=== PATIENT | female | born 1955 | race Hispanic/Latino ===

== ENCOUNTER 2019-01-22 02:53 | Emergency (ER) | payer OTHER ==
[2019-01-22] MEDS ORDERED: Morphine 10 MG/ML VIAL ONE (03:41)
[2019-01-22] MEDS ORDERED: Lidocaine 1% (PF) 30 ML VIAL ONE (03:41)
[2019-01-22] MEDS ORDERED: Bupivacaine 0.5% 10 ML VIAL ONE (03:41)
[2019-01-22] MEDS ORDERED: Lorazepam 1 MG TAB ONE (04:18)
--- NOTE | 2019-01-22 07:39 | RAD ---
RIGHT FOREARM 2 VIEWS: Date: 01/12/19 INDICATION: Post reduction films. COMPARISON: Prior study dated 01/22/19. FINDINGS/IMPRESSION: There is improved alignment in the dorsally angulated metaphyseal fracture of the distal radius. Ther e is a mildly displaced ulnar styloid process fracture. Radiocapitellar alignment appears within norm al limits. Overlying fiberglass splint limits image detail of the fracture. POS: BH
--- NOTE | 2019-01-22 08:24 | RAD ---
RIGHT FOREARM 2 VIEWS: Date: 01/22/19 INDICATION: History of injury and pain to the right forearm. COMPARISON: None. FINDINGS: There is a dorsally angulated, dorsally comminuted metaphyseal fracture. There is a mildly displaced ulnar styloid process fracture. Radiocapitellar alignment is within normal limits. IMPRESSION: Distal both bone forearm fracture. POS: BH
--- NOTE | 2019-01-22 08:28 | RAD ---
RIGHT WRIST THREE VIEWS: INDICATIONS: Fall with right wrist pain. COMPARISON: None. FINDINGS: There is a dorsal angulated and dorsal comminuted distal radius fracture. There is a mildly displace d ulnar styloid process fracture. There is soft tissue swelling of the right wrist. IMPRESSION: Distal both bones forearm fracture. POS: BH
== END 2019-01-22 05:15 | disposition home or self-care (01) ==
LOC: ERS 02:53
DX: S52.531A Colles' fracture of right radius, initial encounter for closed fracture (principal); S52.611A Displaced fracture of right ulna styloid process, initial encounter for closed fracture; F17.210 Nicotine dependence, cigarettes, uncomplicated; W01.0XXA Fall on same level from slipping, tripping and stumbling without subsequent striking against object, initial encounter
CPT/HCPCS: 25605; 96372; 99283; J2001; J2270; J3490

== ENCOUNTER 2019-01-29 10:55 | Day surgery (SDC) | payer OTHER ==
[2019-01-28 16:20] VITALS: BMI 27.2
[2019-01-29] MEDS ORDERED: Midazolam HCl 2 mg/2 ml Vial ONE (12:44)
[2019-01-29] MEDS ORDERED: Fentanyl 100 MCG/2 ML VIAL ONE ×4 (12:51→14:38)
[2019-01-29] MEDS ORDERED: Ketorolac Tromethamine 30 MG/ML VIAL ONE (14:14)
--- NOTE | 2019-01-29 14:28 | RAD ---
FAP and lateral views right wrist. HISTORY: Right wrist fracture AP and lateral views right wrist demonstrates open reduction internal fixation of the distal radial f racture. Proximal and distal fracture fragments are in good anatomic alignment. Plates and screws are in good position. IMPRESSION: Post operative radiograph right wrist.
[2019-01-29] MEDS ORDERED: HYDROmorphone 2 MG/ML VIAL ONE (15:00)
--- NOTE | 2019-01-30 11:20 | OP ---
DATE OF PROCEDURE: 01/29/2019 PREOPERATIVE DIAGNOSIS: Comminuted (greater than three fragments) intra-articular distal radius fracture, right. POSTOPERATIVE DIAGNOSIS: Comminuted (greater than three fragments) intra-articular distal radius fracture, right. PROCEDURE PERFORMED: Open reduction and internal fixation of right distal radius. ANESTHESIA: General. FINANCIAL INVESTMENT MANAGER: Henrry Brown PA-C. TOURNIQUET TIME: 33 minutes at 250 mmHg. IMPLANTS: Synthes system was used with a 2.4-mm variable-angle LCP dual-column 6-hole plate. A combination of 2.7-mm cortical screw and 2.4-mm locking screws was used. COMPLICATIONS: None. DRAINS: None. SPECIMEN: None. OUTCOME: Near-anatomic alignment. INDICATIONS FOR PROCEDURE: The patient is a 63-year-old lady, status post ground level fall landing on an outstretched right hand sustaining a distal radius fracture with significant dorsal displacement. An attempt was made at closed reduction in the emergency room; however, the fracture has again lost reduction due to some dorsal comminution. Given this finding, we are now taking her to the operating room for open reduction and internal fixation to stabilize the fracture, reduce it anatomically, and promote healing. Informed consent has been obtained. I believe all questions were answered. DESCRIPTION OF PROCEDURE: The patient was brought to the operating room, and a time-out was performed followed by induction of general anesthesia. Next, the patient was positioned supine on the OR table with the right arm on a hand board. A sterile prep and drape was then performed of the right upper extremity. The limb was then exsanguinated with Esmarch bandage. Tourniquet was inflated to 250 mmHg. Next, a vertical incision was made just to the radial border of the flexor carpi radialis. After the skin was sharply incised, dissection was carried down bluntly between the brachioradialis and flexor carpi radialis identifying the radial neurovascular bundle and reflecting it radially. Next, the pronator quadratus was released off the radial border of the distal radius and reflected to the midline exposing the underlying distal radius. The fracture edges could be visualized. These were freed of some early soft callus formation, and the fracture hematoma was lavaged from the wound as well. Next, the fracture was reduced and held in place manually while the plate was applied to the volar cortex of the distal radius. Once appropriately positioned, a 2.7-mm cortical screw was placed in the longitudinal limb of the plate holding it against the radius, and then AP and lateral C-arm images were checked to make sure plate was appropriately positioned. Once this check was complete, four 2.4-mm locking screws were placed across the horizontal limb of the plate. This was then followed by insertion of two additional 2.7-mm cortical screws proximally. At the completion of this, AP and lateral C-arm images of the distal radius were obtained and showed anatomic alignment of the fracture and good positioning of the hardware. The wound was then irrigated with bulb syringe and closed in layers with 0 Vicryl deep followed by 2-0 Vicryl subcutaneously and nylon for the skin. Xeroform gauze, Webril, and fiberglass splint were applied to the forearm, and then the patient was transferred to recovery room in stable condition. There were no complications. She tolerated the procedure well. Job ID: [id number]
== END 2019-01-29 16:37 | disposition home or self-care (01) ==
LOC: SDC 10:55
PROVIDERS: ATTEND Orthopaedic Surgery
PROC: 0PSH04Z Reposition Right Radius with Internal Fixation Device, Open Approach (ICD-10-PCS; principal; 2019-01-29)
DX: S52.571A Other intraarticular fracture of lower end of right radius, initial encounter for closed fracture (principal); F17.290 Nicotine dependence, other tobacco product, uncomplicated; W01.0XXA Fall on same level from slipping, tripping and stumbling without subsequent striking against object, initial encounter
CPT/HCPCS: 76000; C1713; J1170; J1885; J2250; J3010; J3490

== ENCOUNTER 2019-03-30 05:06 | Inpatient (IN) | payer OTHER ==
[2019-03-30] MEDS ORDERED: Rocuronium Bromide 10 MG/ML (10ML VIAL) ONE (05:23)
[2019-03-30] MEDS ORDERED: Ketamine 50 MG/ML (10ML VIAL) ONE (05:23)
[2019-03-30 05:59] LABS: Bilirubin Negative (Negative); Blood, Urine Moderate (Negative); Clarity CLOUDY (Clear); Glucose, Urine (Dipstick) Negative (Negative); Leukocyte Negative (Negative); Nitrite Negative (Negative); Protein, Urine (Dipstick) 100 mg/dL (Neg-Trace); Specific Gravity, Urine 1.015 (1.002-1.036); pH, Urine 6.5 (5.0-9.0)
[2019-03-30 06:00] LABS: Medtox Reader # READER 4
[2019-03-30 06:01] LABS: Amphetamine Not Detected (NotDetected); Bacteria/HPF 4+ HPF (None Seen); Barbiturates Screen Not Detected (NotDetected); Benzodiazepine Screen Not Detected (NotDetected); Cocaine Metabolite Screen Not Detected (NotDetected); Medtox Control Line Valid? VALID (VALID); Methadone Not Detected (NotDetected); Methamphetamine Not Detected (NotDetected); Opiate Screen Not Detected (NotDetected); Oxycodone Screen Not Detected (NotDetected); Pathc Cast-AUWi Flag 1.22 (0-2.49); Phencyclidine (PCP) Not Detected (NotDetected); THC/Cannabinoid Screen Not Detected (NotDetected); Tricyclic Screen Not Detected (NotDetected)
[2019-03-30 06:13] LABS: Hyaline Casts/LPF NONE SEEN LPF (0-3 Hyaline); Renal Epithelial None Seen HPF (0-3); Transitional Epithelial 0-3 HPF (0-3)
[2019-03-30] MEDS ORDERED: levETIRAcetam In NaCl (Iso-Os) 1,500 MG in Premix Bag 1 BAG IVPB SCH (06:30)
[2019-03-30] MEDS ORDERED: Cefepime 2 GM VIAL ONE (06:34)
[2019-03-30 06:48] LABS: Hemoglobin 14.3 g/dL (12.0-16.0); Mean Platelet Volume 6.9 fL (7.4-10.4); Platelet Count 294 thou/uL (130-400); RBC Distribution Width 11.5 % (11.5-14.5); Red Blood Cell (RBC) Count 3.86 mill/uL (4.20-5.40); White Blood Cell (WBC) Count 11.6 thou/uL (4.8-10.8)
[2019-03-30 07:05] LABS: ALT (SGPT) 17 U/L (8-55); AST (SGOT) 17 U/L (5-34); Acetaminophen Less than 6.0 mcg/mL (10.0-30.0); Albumin 4.1 g/dL (3.4-4.8); Alcohol Less than 10 mg/dL (Less than 10); Alkaline Phosphatase 97 U/L (40-150); Anion Gap 15 mmol/L (10-20); BUN (Urea Nitrogen) 6 mg/dL (9.8-20.1); Bilirubin, Total 0.6 mg/dL (0.2-1.2); CK (CPK) 69 U/L (29-168); Calc. Creatinine Clearance 0 mL/min (70-130); Calcium 8.9 mg/dL (7.8-10.44); Carbon Dioxide 26 mmol/L (23-31); Chloride 94 mmol/L (98-107); Estimated GFR-MDRD 87; Globulin 3.6 g/dL (2.4-3.5); Glucose 129 mg/dL (80-115); Protein, Total 7.7 g/dL (6.0-8.3); Salicylate Less than 8.0 mg/dL (15.0-30.0); Sodium 133 mmol/L (136-145)
[2019-03-30 07:10] LABS: Potassium 2.3 mmol/L (3.5-5.1)
[2019-03-30 07:18] LABS: #Monocytes 0.5 thou/uL (0.11-0.59); %Basophils 0.2 % (0.0-1.0); %Eosinophils 0.2 % (0.0-10.0); %Monocytes 4.6 % (0.0-10.0); %Neutrophils 86.1 % (42.0-75.0); MDiff Complete? YES; Macrocytosis SLIGHT = 6-15 cells (100X) (0-5/hpf)
[2019-03-30] MEDS ORDERED: Magnesium 2 GM/50 ML BAG (IN WATER) ONE (07:33)
--- NOTE | 2019-03-30 07:39 | RAD ---
EXAM: Single view of the chest HISTORY: Seizure and altered mental status COMPARISON: 06/14/2016 FINDINGS: Single view of the chest shows a normal sized cardiomediastinal silhouette. There is no shanika dence of consolidation, mass, or pleural effusion. The bones are unremarkable. IMPRESSION: No evidence of acute cardiopulmonary disease
[2019-03-30] MEDS ORDERED: Potassium Chloride 40 MEQ in Sodium Chloride 0.9% 250 ML 250 ML IVPB SCH (07:45)
[2019-03-30 08:26] LABS: CSF Source CSF; Clarity Clear (Clear); RBC Count - Manual 0 /cumm (None Seen); Tube # 4; WBC/NonHematics Count - Manual 1 /cumm (0-5)
--- NOTE | 2019-03-30 08:27 | CT ---
CT OF THE BRAIN WITHOUT CONTRAST: Date: 03/30/19 INDICATION: Stroke alert with left-sided deficits and possible seizure. COMPARISON: CT brain dated 05/03/10. FINDINGS: No definite acute infarct, hemorrhage, or hydrocephalus is evident. There is a linear region of calci fication involving the right splenium of the corpus callosum, which is new. No hydrocephalus or midli ne shift is evident. The visualized paranasal sinuses and mastoid air cells are clear. The skull is i ntact. IMPRESSION: Focus of calcification within the right aspect of the splenium is nonspecific and may reflect sequela e of prior old infarct or partially calcified brain lesion. Further evaluation with a MRI of the brai n with and without contrast is recommended for further characterization. Findings called to Dr. Corral at 0536 hours on 03/30/19. CODE CR. POS: LEAH
--- NOTE | 2019-03-30 08:32 | CT ---
CTA HEAD WITH IV CONTRAST AND 3D REFORMATTED IMAGING CTA NECK WITH IV CONTRAST AND 3D REFORMATTED IMAGING: Date: 03/30/19 INDICATION: Stroke protocol with left-sided weakness, last seen normal prior to bed last night. Possible seizure activity. COMPARISON: CT of the brain dated 03/30/19. FINDINGS: CTA NECK: The right vertebral artery is dominant and widely patent. The left vertebral artery is slightly dimin utive but patent. The right common carotid artery is widely patent. The right internal carotid artery along its cervical course is widely patent. The left internal carotid artery along its cervical cour se is patent. The left common carotid artery has a bovine arch origin. The left subclavian artery and right subclavian artery are widely patent. No enlarged lymph nodes are evident. Visualized aspects of the thyroid, submandibular, and parotid glands appear within normal limits. Vis ualized aerodigestive tract is unremarkable appearing. There is scattered degenerative and osteoarthr itic change of the visualized cervical spine. No definite acute osseous abnormality is evident. There is some subsegmental atelectasis involving the posterior aspects of the upper and lower lobes. There is scattered emphysema. There is scattered vascular calcification of the thoracic aorta and cor onary arteries. CTA HEAD: No hemodynamically significant stenosis, occlusion, or aneurysmal formation was evident. No area of a bnormal enhancement is demonstrated. The visualized orbits, paranasal sinuses, and mastoid air cells appear clear. IMPRESSION: No hemodynamically significant stenosis, occlusion, or aneurysmal formation demonstrated. Findings called to Dr. Corral at 0600 hours on 03/30/19. CODE CR. POS: LEAH
[2019-03-30] MEDS ORDERED: CCU Electrolyte Replacement 1 EACH IVPB ONE (09:05)
[2019-03-30] MEDS ORDERED: Ondansetron PF 4 MG/2 ML Vial IVP PRN (09:07)
[2019-03-30] MEDS ORDERED: Acetaminophen 325 MG TAB PO PRN (09:07)
[2019-03-30] MEDS ORDERED: Lorazepam 2 MG/ML VIAL SLOW IVP PRN (09:08)
[2019-03-30] MEDS ORDERED: Potassium Phosphate 12 MMOL in Sodium Chloride 0.9% 250 ML 250 ML IV PRN (09:12)
[2019-03-30] MEDS ORDERED: PHOS-NAK 1 PKT PACK PO PRN ×2 (09:12)
[2019-03-30] MEDS ORDERED: Potassium Chloride 20 MEQ TAB PO PRN (09:12)
[2019-03-30] MEDS ORDERED: Potassium Phosphate 15 MMOL in Sodium Chloride 0.9% 250 ML 250 ML IV PRN (09:12)
[2019-03-30] MEDS ORDERED: Magnesium Oxide 400 MG TAB PO PRN ×2 (09:12)
[2019-03-30] MEDS ORDERED: CCU ELECTROLYTE REPLACEMENT PROTOCOL FS PRN (09:12)
[2019-03-30] MEDS ORDERED: Potassium Chloride 40 MEQ in Premix Bag 1 BAG IVPB PRN (09:12)
[2019-03-30] MEDS ORDERED: Potassium Chloride 40 MEQ in Sodium Chloride 0.9% 250 ML 250 ML IVPB PRN (09:12)
[2019-03-30] MEDS ORDERED: Potassium Phosphate 9 MMOL in Sodium Chloride 0.9% 100 ML IVPB PRN (09:12)
[2019-03-30] MEDS ORDERED: Magnesium 2 GM/50 ML 2 GM in Premix Bag 1 BAG IVPB PRN (09:12)
[2019-03-30 10:14] VITALS: BMI 28.0
[2019-03-30] MEDS ORDERED: cefTRIAXone\\ROCEPHIN 2 GM in Sodium Chloride 0.9% 100 ML IVPB SCH (11:00)
[2019-03-30] MEDS: Ipratropium Bromide 2.5 ml Neb NEB SCH ×2 (13:16→18:38)
[2019-03-30 13:30] LABS: Anion Gap 13 mmol/L (10-20); BUN (Urea Nitrogen) 4 mg/dL (9.8-20.1); Calc. Creatinine Clearance 99 mL/min (70-130); Calcium 8.4 mg/dL (7.8-10.44); Carbon Dioxide 26 mmol/L (23-31); Chloride 101 mmol/L (98-107); Estimated GFR-MDRD Greater than 90; Glucose 106 mg/dL (80-115); Sodium 137 mmol/L (136-145)
[2019-03-30] MEDS: cefTRIAXone\\ROCEPHIN 2 GM in Sodium Chloride 0.9% 100 ML IVPB SCH (14:27)
--- NOTE | 2019-03-30 15:54 | HP ---
CHIEF COMPLAINT: Altered mental status. HISTORY OF PRESENT ILLNESS: The patient is a 63-year-old female with no significant past medical history, who presents to the hospital for altered mental status. The patient's , who is at the bedside states that on Sunday, the patient felt unwell, felt dizzy at work and asked her to come pick her up from work. The patient's stated that throughout the day yesterday, she laid around, felt little cold, however no fever. No diarrhea. No abdominal pain. She did get nauseous, however, no emesis. The patient has since then stated that last night or early Sunday morning she woke up twice. Around 1:30 and around 2:30 in the morning stating that she wanted to go out to get some fresh air. At this time, the patient's then heard that the patient screaming very loudly. When the patient's went to assess her, he found her to have very stiff and gazing to the left side. The patient's stated that he could not make her focus on him. He just kept gazing to the left side. He waited a few minutes hoping that this would resolve, however, it did not, so he called EMS. The patient's did state that while EMS was summoned and while they were at their house, she did answer a few questions, however, was unable to answer all the questions appropriately and was very dazed. The patient was given a total of 3 mg of Ativan en route. When the patient came into the hospital, she was found to be combative and was put on restraints. The patient was admitted to the [facility] for close monitoring since she was still arousable, but very sedated. PAST MEDICAL HISTORY: Per , none. PAST SURGICAL HISTORY: She has had a kidney stone removed and right wrist open reduction and internal fixation of the right distal radius. SOCIAL HISTORY: The patient does smoke a pack every other day. Alcohol beverage, she drinks 3 or 4 times a week. She only drinks 1 drink, however, the states that the 1 drink is very heavily, has 3 or 4 shots of liquor in that one drink. He also states that her last alcoholic beverage was Sunday and she has never really had any alcohol withdrawal symptoms in the past and she has gone days without alcohol use and according to him, she has been fine. She is a full code. Lives with her family. ALLERGIES: SHE HAS NO KNOWN DRUG ALLERGIES. MEDICATIONS: She only takes ibuprofen and tramadol. However, the tramadol she only takes once a week, nothing significant. Ibuprofen, she does take for pain in her right wrist. FAMILY HISTORY: History of significant heart disease. REVIEW OF SYSTEMS: Unable to obtain. The patient is easily arousable, but unable to provide all review of systems. PHYSICAL EXAMINATION: VITAL SIGNS: Temperature of 98.8, heart rate of 100, blood pressure of 140/60, and oxygen saturation 98% on 2 L. GENERAL: She appears sedated, however, is easily arousable with sternal rub. She does answers some questions appropriately. HEENT: Normocephalic, atraumatic. Pupils are equal and reactive to light. Mucous membranes do appear a little dry. NECK: No lymphadenopathy noted. CARDIOVASCULAR: S1 and S2 present. No murmurs, rubs, or gallops. LUNGS: Clear to auscultation. No rhonchi or wheezes noted. ABDOMEN: Soft and nontender. Bowel sounds are present x2. EXTREMITIES: No edema. Pedal pulses are present x2. NEUROVASCULAR: She is able to move all 4 upper and bilateral lower extremities. SKIN: No cuts, lesions, or bruises noted. DIAGNOSTIC DATA: The patient did have a CT brain on her initial arrival that did indicate just focus of calcification within the right aspect of the splenium, is nonspecific, may reflect prior old infarcts or partially calcified brain lesion. Also, she had a CTA, which did not indicate any acute stenosis or any acute abnormalities or any aneurysms. She did also have a chest x-ray, which did not indicate any acute cardiopulmonary processes. The patient's laboratory results; WBCs of 11.6, hemoglobin of 14.3, hematocrit of 40.8, and platelets of 294. Chemistries; sodium of 130, potassium of 2.3, and creatinine of 0.68. Her prolactin level was 3.42. Her troponin x1 was negative. Her TSH was 0.46. Her magnesium was 1.7. Her ammonia level was 32. ASSESSMENT AND PLAN: The patient is a very pleasant 63-year-old female, who presented to the hospital with altered mental status. 1. Acute metabolic encephalopathy. This could be secondary to seizure versus infectious versus possible stroke. Unclear at this time what really caused the patient to have her symptoms. I will order an MRI brain with and without contrast given the CT findings. I will continue the Keppra for now. I will also consult Neurology for further evaluation. The patient's last alcoholic beverage was on Sunday and according to the family, no really significant history of withdrawals in the past. Her UDS was negative and her alcohol level was 10. Also, she underwent a lumbar puncture in the ER. We will cover her with antibiotics and antivirals for now. 2. Hypokalemia. We will replace the potassium and continue to monitor. 3. History of alcohol use. We will put the patient on NAGI protocol. We will add p.r.n. Ativan for withdrawal and also will add p.r.n. Ativan for seizure precautions. 4. Deep venous thrombosis prophylaxis. We will put the patient on some SCDs. Job ID: [id number]
--- NOTE | 2019-03-30 15:55 | MRI ---
PRE AND POSTCONTRAST ENHANCED MRI BRAIN: HISTORY: Seizure. FINDINGS: Pre and postcontrast enhanced MRI of the brain obtained. There are areas of T2 signal abnormality and enhancement seen in the right choroid plexus and right t emporo-occipital, subependymal, and deep white matter. The T2 signal abnormality extends into the splenium of the corpus callosum. Signal abnormality also extends along the medial aspect of the right temporal lobe into the right hippocampus. Along the medial anterior aspect of the right temporal lobe there is also a small area of white matte r enhancement. Findings concerning for right choroid plexus and intraparenchymal brain metastases or possible brain neoplasm. There appears to be extension of the mass possibly into the medial right temporal lobe. This may be the cause of the patient's seizure. Neurosurgical consultation recommended. IMPRESSION: Right choroid plexus and adjacent areas of signal abnormality compatible with metastatic disease or b rain neoplasm with extension into the right temporal lobe and splenium of the corpus callosum. Transcribed Date/Time: 03/30/2019 4:27 PM
[2019-03-30] MEDS: SODIUM CHLORIDE 0.9% IVPB SCH ×2 (15:56→21:57)
[2019-03-30] MEDS: ACYCLOVIR SODIUM IVPB SCH ×2 (15:56→21:57)
[2019-03-30] MEDS ORDERED: ISOVUE-370 76%-LOCM 1 ML ONE (16:04)
--- NOTE | 2019-03-30 16:57 | CON ---
DATE OF CONSULTATION: 03/30/2019 Telemedicine consultation with RNCharity. CHIEF COMPLAINT: Seizures. HISTORY OF PRESENT ILLNESS: The patient is a 63-year-old previously healthy lady. She was not feeling well yesterday and felt dizzy and picked her up from work and brought her home and she woke up a couple of times in the night. She when out to breathe and was coughing per . He then saw her this morning when he woke up, he saw her screaming and unresponsive and it was quite she was half on the couch and half off the couch. She was stiff and her eyes and head were turned to the left. Even if he turned her head straight back she went back that way. There was no prior seizures and there was no jerkiness of her extremities. No incontinence. She was altered and he called 911, brought her here. There is no prior history of seizures or confusion. PAST MEDICAL HISTORY: She had kidney stones 2 years ago. PAST SURGICAL HISTORY: She had gallbladder surgery several years ago. She tripped over dog and fractured her right wrist on January 29, 2019. FAMILY HISTORY: Her father is 86 and healthy. Mother at 84 following cardiac issues and pacemaker. Sister is 62. A total of 5 sisters and 2 brothers. One sister from various health issues, but they do not know the exact diagnoses. There is no known family history of seizures. REVIEW OF SYSTEMS: Unable to obtain due to the patient's mental status. ALLERGIES: NO KNOWN DRUG ALLERGIES. LABORATORY WORKUP: White count 11.6, hemoglobin 14.3, hematocrit 40.8, MCV 106, platelets 294. Chemistry; sodium 133, potassium 2.3, chloride 94, BUN 6, creatinine 0.68, glucose 129. TSH 0.46, prolactin 3.42. Her spinal fluid CSF glucose 79, protein 47, 1 white cell. She had clear colorless CSF. Her MRI is pending. CT angiogram was unremarkable and CT scan did not show any evidence of acute hemorrhage or stroke. On the CT head, she did have a focus of calcification in the splenium of corpus callosum, which will be evaluated further by MRI. PHYSICAL EXAMINATION: VITAL SIGNS: Blood pressure 151/77, pulse rate is 77, respiratory rate 25, O2 sats 98%. GENERAL APPEARANCE: Thin built lady, who is comfortable, but sleepy due to sedation. She is arousable and follows some commands. CHEST: Clear vesicular breathing. CARDIOVASCULAR: S1 and S2 heard. No murmurs. ABDOMEN: Soft. No organomegaly noted. NEUROLOGIC: Higher intellectual function. She is sleepy, but arousable. She is oriented to person, date, and month, and did not know the year. Cranial nerve examination; pupils 2 mm reactive, normal extraocular movements, normal sensation of face. Tongue midline. No atrophy noted. Normal elevation of palate. Normal hearing bilaterally to finger rub. Motor examination, bulk normal, tone normal. Strength 5/5 in both upper and lower extremities. Muscle groups tested are deltoid, biceps, triceps, wrist extension and flexion, finger extension and flexion bilaterally, deep tendon reflexes were 3+ throughout, sensory normal to touch and cerebellar difficult to assess lower limbs, but upper extremities cerebellar exam was within normal limits. IMPRESSION: The patient is a 63-year-old lady, who for unknown reason has been noted to have severe combativeness, alteration of mental status in association with a tonic seizure. At this time, it is unclear why she had a seizure and so far all the workup has been negative. She is pending an MRI of the brain. She is currently on Keppra. TREATMENT RECOMMENDATIONS: Please monitor her for any further seizures. I am expecting her to improve with her cognition by later this afternoon and continue Keppra. I will modify the dosage as well. She is on acyclovir and vancomycin. Agree with current plan for antibiotics as well and we can request MRI of the brain and EEG. I will see the patient again as needed. Job ID: [id number] MTDD
[2019-03-30] MEDS ORDERED: Potassium Chloride 20 MEQ TAB PO SCH (17:00)
--- NOTE | 2019-03-30 17:26 | CON ---
DATE OF CONSULTATION: 03/30/2019 SERVICE: Pulmonary Medicine. REASON FOR CONSULT: IMCU patient. HISTORY OF PRESENT ILLNESS: The patient is a 63-year-old female with past medical history significant for essentially nothing. She drinks a little bit of alcohol, but not on a daily basis. She presented to the hospital with an acute confusional state that progressed over a period about 2 to 3 days. No family is around to relay any of the historical elements. She is only oriented x2. She really does not have a good appreciation for what the situation is. She indicates that she has been feeling feverish for a day or 2. She never did have a temperature. She is becoming increasingly agitated, and had something that appears to have been a seizure-like activity. Ultimately, she was brought to the emergency room. En route, she was given several milligrams of Ativan. An extensive neurological workup has been performed. She got an additional 2 mg of Ativan to keep still during an MRI. At this point, she is a little bit sleepy, but with gentle stimulation, she wakes up in and follows commands. PAST MEDICAL HISTORY: None. PAST SURGICAL HISTORY: 1. Right wrist surgery. 2. Extraction of kidney stone. FAMILY HISTORY: Noncontributory. SOCIAL HISTORY: She smokes half a pack on a daily basis and has about a 20 pack-year history of smoking. She drinks 2 to 3 times per drink, but only typically drinks 1 or 2 margaritas. There is no illicit drug use. She has no exposure to chemicals, dust, asbestos, or tuberculosis. ALLERGIES: NO KNOWN DRUG ALLERGIES. MEDICATIONS: List of her inpatient medications was reviewed. I added scheduled Decadron. REVIEW OF SYSTEMS: General; head eyes, ears, nose, and throat; cardiovascular, respiratory, GI, , musculoskeletal, neurologic, and skin are negative, except as mentioned in the HPI. PHYSICAL EXAMINATION: VITAL SIGNS: Afebrile. Pulse 76, blood pressure 153/77, respirations 25, saturation 100% on 2 L nasal cannula. GENERAL: The patient is somnolent. She wakes up with minimal stimulation. She will hold a conversation, but with no stimulation, within 10 seconds, she will drift back off to sleep. HEENT: Normocephalic and atraumatic. Sclerae white. Conjunctivae pink. Oral mucosa is moist without lesions. LUNGS: Decent air entry. No prolonged expiratory phase or wheezing is appreciated. HEART: Normal rate and regular. NEUROLOGIC: Pupils are equal, round, and reactive. Extraocular movements are intact. She has a good gag and a cough. Tongue sticks out midline. She has symmetric strength with shoulder shrug, and looking left and right. Strength is 4+/5. Reflexes appear to be intact and symmetric at the brachioradialis, and patella. Rapidly alternating movements of the right and left upper extremity as well as [id number] in the lower extremity are unremarkable. Sensation was not tested. LABORATORY DATA: WBC 11.6, hemoglobin 14.3, platelets 294,000. Basic metabolic profile is essentially unremarkable. Potassium 3.0. Magnesium 1.7. Prolactin 3.42. TSH 0.46. Troponin is negative. Ammonia is unremarkable. Liver function studies are unremarkable. Urinalysis is unremarkable. CSF has 1 white blood cell. Glucose was essentially normal. Total protein in the CSF was elevated at 47. Urine drug screen, salicylates, acetaminophen, and alcohol were all unremarkable. Body fluid culture negative to date. IMAGING STUDIES: 1. MRI of the brain demonstrates right choroid plexus. Signal abnormality compatible with brain neoplasm versus metastatic process. There was extension in the right temporal lobe and splenium of the corpus callosum. 2. Chest x-ray demonstrates no acute cardiopulmonary abnormality. 3. CT of the [place] is unremarkable for vascular abnormalities. 4. CT of the brain demonstrates small area of calcification in the right aspect of the splenium. ASSESSMENT: 1. Seizure, suspected. 2. Intracranial mass based on MRI findings. 3. Hypokalemia, quite pronounced. DISCUSSION AND PLAN: We will replace the magnesium and the potassium. We will repeat a magnesium and potassium tomorrow morning. Schedule Decadron to help with any type of swelling associated with mass effect. Empiric antibiotics will be continued for the time being, but I have a very low suspicion of an acute infectious process. Empiric antiepileptic drugs will be continued. Neurology has already been consulted. Pulmonary will continue to follow in this location. 70 minutes have been devoted to this patient in various activities. I personally reviewed all imaging studies and laboratory data noted within this document. For fifty percent of this time, I was interacting with the patient at the bedside or coordinating care with the care team. For the remainder of the time I was immediately available to the patient in the hospital unit. Job ID: [id number] [facility]
[2019-03-30] MEDS: Dexamethasone 4 mg/ml Vial SLOW IVP SCH ×2 (18:30→23:01)
[2019-03-30] MEDS: Famotidine/PF 20 mg/2ml Vial SLOW IVP SCH (20:39)
[2019-03-31] MEDS: Ipratropium Bromide 2.5 ml Neb NEB SCH ×5 (00:16→23:09)
[2019-03-31 06:05] LABS: ALT (SGPT) 22 U/L (8-55); AST (SGOT) 27 U/L (5-34); Alkaline Phosphatase 91 U/L (40-150); Anion Gap 14 mmol/L (10-20); BUN (Urea Nitrogen) 13 mg/dL (9.8-20.1); Bilirubin, Total 0.6 mg/dL (0.2-1.2); Calc. Creatinine Clearance 60 mL/min (70-130); Carbon Dioxide 25 mmol/L (23-31); Chloride 104 mmol/L (98-107); Estimated GFR-MDRD 59; Globulin 3.4 g/dL (2.4-3.5); Glucose 121 mg/dL (80-115); Magnesium 2.1 mg/dL (1.6-2.6); Potassium 3.6 mmol/L (3.5-5.1); Protein, Total 7.4 g/dL (6.0-8.3); Sodium 139 mmol/L (136-145)
[2019-03-31] MEDS: SODIUM CHLORIDE 0.9% IVPB SCH ×2 (06:22→13:37)
[2019-03-31] MEDS: ACYCLOVIR SODIUM IVPB SCH ×2 (06:22→13:37)
[2019-03-31] MEDS: Dexamethasone 4 mg/ml Vial SLOW IVP SCH ×4 (06:22→22:36)
--- NOTE | 2019-03-31 07:42 | PRG ---
DATE OF SERVICE: 03/31/2019 I personally interviewed and examined the patient, reviewed documentation of Reta Diaz PA-C, dated 03/30/2019. Briefly, Ree Maldonado is a 63-year-old woman without significant past medical history, had new onset seizure yesterday and was brought to our emergency department. CT examination of brain revealed some calcification in the right side of the splenium of the corpus callosum and adjacent to the occipital horn of the lateral ventricle on the right. MR imaging was done revealing some FLAIR signal changes in the hippocampus and hippocampal formation, which could be related to seizure or the lesion, and some enhancement of the aforementioned areas near the occipital horn and corpus callosum. There was not obvious flow void in that area. Ms. Maldonado was admitted and Neurosurgery was consulted. Overnight, she does not report any events. I am seeing Ms. Maldonado in our Intermediate Care Unit room this morning. Her vitals are stable. She is awake. She is conversant. She does not remember what happened to her, but tells me her may have witnessed a seizure activity. Cranial nerves are working well. There is no neglect. There is no drift or lateralizing motor or sensory deficit. Imaging studies; the MR images are unusual. They are degraded by motion. The combination of calcification with enhancement suggests both the chronic lesion and some acute change therein. It is unclear whether the FLAIR signal changes in the epicanthus is related to this particular lesion or related to the seizure activity. I told Ms. Maldonado that there are number of things on the differential that this could be neoplasm, may be first on that list, but it is unclear whether this would be primary or metastatic. However, the imaging is unusual even for that and an infectious process, a subacute stroke with enhancement, and aggressive demyelinating lesion are possibilities. This is in the area, where AVM could be possible, and there is a larger vein and the choroid plexus, but there is not a significant amount of flow voids around. I told Ms. Maldonado that we would start Decadron, a proton-pump inhibitor, and Keppra. We will get a CT of the chest, abdomen, and pelvis looking for any primary lesion. She needs a thorough examination of her skin for melanoma and breasts for any breast cancer. If we are still unsure what this represents, I will keep her on Keppra and Decadron. In a few weeks, we will repeat the MR images, and hopefully, this can be done without any motion artifact. We will get a better idea of what it is. If the Decadron makes this decreased significantly in size and it could be a lymphoma, although the calcification might argue against it. We will not plan any surgical intervention on the brain during this admission because of the unclear nature of the lesion. Job ID: [id number]
[2019-03-31] MEDS: Famotidine/PF 20 mg/2ml Vial SLOW IVP SCH ×2 (09:03→21:20)
[2019-03-31] MEDS: Enoxaparin Sodium 40 MG/0.4 ML SYRINGE SC SCH (09:03)
--- NOTE | 2019-03-31 10:13 | CON ---
DATE OF CONSULTATION: HISTORY OF PRESENT ILLNESS: Ms. Maldonado is a 63-year-old female, who was brought to the hospital yesterday due to altered mental status. The patient indicates that she was feeling bad for a few days. However, early or late Sunday night, the patient woke up and felt dizzy and had some lateralizing gaze. The patient was brought into the hospital for workup for seizure and altered mental status. She was found to have a significant UTI. CT head and MRI of the head have been completed. MRI shows an enhancing lesion with possible brain neoplasm or metastatic disease. Neurosurgery has been consulted. I see Ms. Maldonado in her hospital room. She is resting comfortably, complaining of having however, she has a Duran. She is only mildly confused about the events leading up to her hospital stay. She is alert and oriented. Cranial nerves are intact. There is no neglect. No drift or lateralizing motor or sensory deficits per chart. REVIEW OF SYSTEMS: A 10-point review of systems has been completed and is negative other than stated in the above HPI. PAST MEDICAL HISTORY: The patient denies past medical history. PAST SURGICAL HISTORY: The patient had kidney stone removal, right wrist open reduction and internal fixation, and tubal ligation. SOCIAL HISTORY: The patient drinks approximately half pack of cigarettes a day and drinks alcohol daily. Denies illicit drugs. She lives with her in home. ALLERGIES: NO KNOWN DRUG ALLERGIES. MEDICATIONS: 1. Ibuprofen. 2. Tramadol. PHYSICAL EXAMINATION: VITAL SIGNS: Temperature 97.0, heart rate 73, respirations 14, blood pressure 163/92, and O2 saturation is 95% on room air. CONSTITUTIONAL: The patient is alert and oriented. She is afebrile, hypertensive, nontoxic, does not appear in any visible distress. HEENT: Head is normocephalic and atraumatic. Pupils are equal, round, and reactive to light. Extraocular movements are intact. Hearing is intact. Moist mucous membranes. RESPIRATIONS: Normal work of breathing on room air. Symmetric chest rise. EXTREMITIES: The patient has normal range of motion of bilateral upper and lower extremities. She has 5/5 strength in deltoids, biceps, triceps, patient services clerk strength, hip flexion, hip extension, knee flexion, dorsiflexion, and plantar flexion. There are no sensory deficits. NEUROLOGIC: The patient is alert and oriented x3. She has some confusion surrounding her immediate history of coming to hospital. Long-term memory is intact. Speech is spontaneous and fluent. Comprehension is intact. Content appropriate. Cranial nerves II through XII are intact. There is no pronator drift. There are no lateralizing motor or sensory deficits. Cerebellar exam normal. IMAGING: CT brain, there is progressive calcification within the right aspect of the splenium and nonspecific and may reflect sequelae of prior old infarct or partially calcified brain lesions. MRI of the brain, right carotid plexus and adjacent areas of signal abnormality compatible with metastatic disease or brain neoplasm with extension into the right temporal lobes . ASSESSMENT AND PLAN: Ms. Maldonado is a 63-year-old female, who was brought to the emergency department for altered mental status with significant UTI and seizure activity. While in the hospital, workup was done and an enhancing brain lesion has been found. Workup for this imaging abnormality is appropriate and there are multiple things that could be part of the differential for this lesion, primarily for workup for primary metastatic lesion. We recommend starting the patient on Decadron, proton pump inhibitor, and Keppra. Obtain CT of the chest, abdomen, and pelvis, looking for any primary lesion. Examination of skin for any melanoma and breast exam for possible breast cancer. Following workup, we would like to see the patient in the office in 3 weeks with a new MRI. For more specific information on differential, please see Dr. Sahu's progress note. If any other questions, please contact the Neurosurgery Team. Job ID: [id number]
--- NOTE | 2019-03-31 10:53 | CT ---
CT CHEST WITH IV CONTRAST CT ABDOMEN WITH IV CONTRAST CT PELVIS WITH IV CONTRAST: HISTORY: Brain mass. Concern for metastatic disease. Exam requested to search for primary. FINDINGS: No mediastinal, hilar, or axillary mass or lymphadenopathy is seen. No pleural or pericardial effusi ons are identified. There are dependent changes in the lung bases. No pneumothoraces or lobar conso lidation is seen. There is a 5 mm peripheral nodule in the lateral limb of the right middle lobe. The liver, spleen, pancreas, adrenal glands, and right kidney are unremarkable. There is a small cys t in the left kidney. There is a scar in the left kidney. The patient is post cholecystectomy. No free air, free fluid, or lymphadenopathy is seen in the abdomen or pelvis. The small bowel loops are not abnormally dilated. A small hiatal hernia is present. The appendix is normal. There is col onic diverticulosis without evidence of diverticulitis. There are vascular calcifications without evidence of aneurysmal dilatation of the thoracoabdominal a beverly. There are degenerative changes in the thoracolumbar spine. No osteolytic or osteoblastic lesi ons are seen. There is a Duran catheter in the urinary bladder. IMPRESSION: 1. Indeterminate 5 mm right lung nodule. A 6-month followup CT scan of the chest is recommended. 2. Colonic diverticulosis. 3. Small hiatal hernia. Code LN POS: [facility]
--- NOTE | 2019-03-31 11:08 | PRG ---
DATE OF SERVICE: 03/31/2019 SUBJECTIVE: This morning, she is awake, alert, and responsive. No pain. No discomfort. OBJECTIVE: VITAL SIGNS: Blood pressure 192/80, pulse 117, temperature 98, respiratory rate 14. GENERAL: Awake. EXTREMITIES: Moves all 4 extremities. CHEST: Decreased breath sounds. No wheezing. CARDIAC: Normal S1 and S2. No gallops. ABDOMEN: No masses. IMPRESSION: 1. Urinary tract infection. 2. Seizure disorder, new. 3. Abnormal MRI with a right choroid plexus lesion, suggestive of a metastasis. PLAN: 1. Continue Decadron, seizure medication, supportive care. 2. We will follow while in the MICU. Job ID: [id number]
[2019-03-31] MEDS: hydrALAZINE 20 MG/ML VIAL SLOW IVP PRN (13:29)
[2019-03-31] MEDS: cefTRIAXone\\ROCEPHIN 2 GM in Sodium Chloride 0.9% 100 ML IVPB SCH (13:37)
--- NOTE | 2019-03-31 13:45 | PDOC.PN ---
- Subjective Encounter Start Date: 03/31/19 Encounter Start Time: 09:50 Subjective: pt up in bed no complains, wants to go out to smoke - Objective Resuscitation Status - Order Detail: 03/30/19 09:07 Resuscitation Status Routine Resuscitation Status: FULL: Full Resuscitation Vital Signs & Weight: Vital Signs (12 hours) Temp Pulse Resp Pulse Ox 03/31/19 13:29 73 03/31/19 12:48 73 15 99 03/31/19 11:34 97.2 F L 03/31/19 07:26 73 14 03/31/19 07:21 97.0 F L 03/31/19 03:06 97.2 F L Weight Weight 140 lb 3.2 oz Most Recent Monitor Data Heart Rate from ECG 75 NIBP 192/80 NIBP BP-Mean 117 Respiration from ECG 9 SpO2 82 I&O: 03/30/19 03/31/19 04/01/19 06:59 06:59 06:59 Intake Total 410 Output Total 1000 Balance -590 Result Diagrams: 03/30/19 06:13 03/31/19 05:17 Phys Exam - Physical Examination Respiratory: no wheezing, no rales, no rhonchi, wheezing present, clear to auscultation bilateral Cardiovascular: RRR, no significant murmur, no rub, gallop, irregular Gastrointestinal: soft, non-tender, no distention, positive bowel sounds Musculoskeletal: no edema, pulses present, edema present Dx/Plan (1) Acute metabolic encephalopathy Code(s): G93.41 - METABOLIC ENCEPHALOPATHY Status: Acute (2) Seizure Code(s): R56.9 - UNSPECIFIED CONVULSIONS Status: Acute (3) Tobacco abuse Code(s): Z72.0 - TOBACCO USE Status: Acute (4) Abnormal MRI of head Code(s): R93.0 - ABNORMAL FINDINGS ON DX IMAGING OF SKULL AND HEAD, NEC Status : Acute (5) UTI (urinary tract infection) Status: Acute - Plan will continue abx for now -: udated pt and of neurosurgery recommendation -: will continue steroids and antiseizure meds. -: pt stable to be transferred out, coyne will be discontinued * . Review of Systems - Review of Systems Respiratory: negative: Cough, Dry, Shortness of Breath, Hemoptysis, SOB with Excertion, Pleuritic Pain, Sputum, Wheezing Cardiovascular: negative: chest pain, palpitations, orthopnea, paroxysmal nocturnal dyspnea, edema, light headedness, other Gastrointestinal: negative: Nausea, Vomiting, Abdominal Pain, Diarrhea, Constipation, Melena, Hematochezia, Other - Medications/Allergies Allergies/Adverse Reactions: Allergies Allergy/AdvReac Type Severity Reaction Status Date / Time No Known Allergies Allergy Verified 03/30/19 10:24 Medications: Current Medications Acetaminophen (Tylenol) 650 mg PO Q4H PRN PRN Reason: Headache/Fever/Mild Pain (1-3) Dexamethasone (Decadron) 4 mg SLOW IVP 0500,1100,1700,2300 [facility] Last Admin: 03/31/19 12:22 Dose: 4 mg Enoxaparin Sodium (Lovenox) 40 mg SC 0900 [facility] Last Admin: 03/31/19 09:03 Dose: 40 mg Famotidine (Pepcid) 20 mg SLOW IVP Q12HR [facility] Last Admin: 03/31/19 09:03 Dose: 20 mg Hydralazine HCl (Apresoline) 10 mg SLOW IVP Q6H PRN PRN Reason: SBP > 180 Last Admin: 03/31/19 13:29 Dose: 10 mg Potassium Chloride 40 meq/ (Sodium Chloride) 270 mls @ 135 mls/hr IVPB ASDIR PRN PRN Reason: FOR SERUM K+ 2.5 - 3.5 Potassium Chloride 40 meq/ (Device) 100 mls @ 50 mls/hr IVPB ASDIR PRN PRN Reason: FOR SERUM K+ 2.5 - 3.5 Magnesium Sulfate 1 gm/ Sodium (Chloride) 102 mls @ 102 mls/hr IV PRN PRN PRN Reason: MAG LEVEL 1.4 - 2.0 Magnesium Sulfate 2 gm/ Device 50 mls @ 50 mls/hr IVPB ASDIR PRN PRN Reason: MAGNESIUM < 1.4 Potassium Phosphate 9 mmol/ (Sodium Chloride) 103 mls @ 25.75 mls/hr IVPB ASDIR PRN PRN Reason: Phosphate 1.0-1.8 Potassium Phosphate 12 mmol/ (Sodium Chloride) 254 mls @ 63.5 mls/hr IV ASDIR PRN PRN Reason: Serum phosphate 0.5-0.9 Potassium Phosphate 15 mmol/ (Sodium Chloride) 255 mls @ 63.75 mls/hr IV ASDIR PRN PRN Reason: Serum Phos < 0.5 Acyclovir Sodium 680 mg/ (Sodium Chloride) 113.6 mls @ 113.6 mls/hr IVPB Q8HR [facility] Last Admin: 03/31/19 13:37 Dose: 113.6 mls Ceftriaxone Sodium 2 gm/ (Sodium Chloride) 100 mls @ 200 mls/hr IVPB Q24HR [facility] Last Admin: 03/31/19 13:37 Dose: 100 mls Levetiracetam 500 mg/ Device 100 mls @ 200 mls/hr IVPB BID [facility] Last Admin: 03/31/19 09:03 Dose: 100 mls Ipratropium [place] (Atrovent) 2.5 ml NEB [id number] [facility] Last Admin: 03/31/19 12:48 Dose: 2.5 ml Lorazepam (Ativan) 2 mg SLOW IVP Q6H PRN PRN Reason: Seizures Last Admin: 03/30/19 11:40 Dose: 2 mg Magnesium Oxide (Magnesium Oxide) 400 mg PO BIDPRN PRN PRN Reason: FOR SERUM MAG 1.4 - 2.0 Magnesium Oxide (Magnesium Oxide) 800 mg PO PRN PRN PRN Reason: FOR SERUM MAG < 1.4 Miscellaneous Medication (Phos-Nak) 1 pkt PO TIDPRN PRN PRN Reason: FOR PHOS LEVEL 1.0 - 1.8 Miscellaneous Medication (Phos-Nak) 2 pkt PO TIDPRN PRN PRN Reason: FOR PHOS LEVEL 0.5 - 1.0 Ccu Electrolyte (Replacement Protocol) 0 each FS PRN PRN PRN Reason: FOR ELECTROLYTE REPLACEMENT Ondansetron HCl (Zofran) 4 mg IVP Q6H PRN PRN Reason: Nausea/Vomiting Potassium Chloride (K-Dur) 40 meq PO ASDIR PRN PRN Reason: FOR SERUM K+ 2.5 - 3.5 Potassium Chloride (Klor-Con) 40 meq PER TUBE ASDIR PRN PRN Reason: FOR SERUM K+ 2.5-3.5 Sodium Chloride (Flush - Normal Saline) 10 ml IVF Q12HR JEAN Sodium Chloride (Flush - Normal Saline) 10 ml IVF PRN PRN PRN Reason: Saline Flush
--- NOTE | 2019-03-31 13:51 | PDOC.EVN ---
Event Note - Event Note Event Note: pt's updated with brain MRI result. Pt was very sedated due to ativan. All questions answered.
[2019-03-31] MEDS ORDERED: ISOVUE-370 76%-LOCM 1 ML ONE (16:09)
[2019-03-31] MEDS ORDERED: Nicotine 7 MG PATCH TD SCH (22:15)
[2019-04-01] MEDS: hydrALAZINE 20 MG/ML VIAL SLOW IVP PRN (03:55)
[2019-04-01] MEDS: Dexamethasone 4 mg/ml Vial SLOW IVP SCH ×2 (05:42→11:02)
[2019-04-01 05:52] LABS: #Lymphocytes 1.3 thou/uL (1.20-3.40); #Monocytes 0.7 thou/uL (0.11-0.59); #Neutrophils 11.5 thou/uL (1.40-6.50); %Basophils 0.1 % (0.0-1.0); %Eosinophils 0.1 % (0.0-10.0); %Lymphocytes 9.8 % (21.0-51.0); %Neutrophils 84.9 % (42.0-75.0); Hemoglobin 14.1 g/dL (12.0-16.0); Mean Corpuscular HGB CONC 33.6 g/dL (32.0-36.0); Mean Corpuscular Hemoglobin 35.8 pg (27.0-31.0); Mean Platelet Volume 6.9 fL (7.4-10.4); Platelet Count 303 thou/uL (130-400); RBC Distribution Width 11.6 % (11.5-14.5); Red Blood Cell (RBC) Count 3.94 mill/uL (4.20-5.40); White Blood Cell (WBC) Count 13.6 thou/uL (4.8-10.8)
[2019-04-01 06:22] LABS: ALT (SGPT) 18 U/L (8-55); AST (SGOT) 22 U/L (5-34); Albumin 3.9 g/dL (3.4-4.8); Alkaline Phosphatase 83 U/L (40-150); Anion Gap 15 mmol/L (10-20); BUN (Urea Nitrogen) 21 mg/dL (9.8-20.1); Bilirubin, Total 0.4 mg/dL (0.2-1.2); Calc. Creatinine Clearance 54 mL/min (70-130); Calcium 9.3 mg/dL (7.8-10.44); Carbon Dioxide 22 mmol/L (23-31); Chloride 105 mmol/L (98-107); Estimated GFR-MDRD 52; Globulin 3.4 g/dL (2.4-3.5); Glucose 132 mg/dL (80-115); Potassium 3.2 mmol/L (3.5-5.1); Protein, Total 7.3 g/dL (6.0-8.3); Sodium 139 mmol/L (136-145)
[2019-04-01] MEDS: Ipratropium Bromide 2.5 ml Neb NEB SCH (07:39)
[2019-04-01] MEDS: Enoxaparin Sodium 40 MG/0.4 ML SYRINGE SC SCH (09:56)
[2019-04-01] MEDS: Famotidine/PF 20 mg/2ml Vial SLOW IVP SCH (09:57)
--- NOTE | 2019-04-01 10:37 | PDOC.PN ---
- Subjective Encounter Start Date: 04/01/19 Encounter Start Time: 07:20 -: old records requested/rev Patient seen and examined. No new complaints. No overnight events - Objective Resuscitation Status - Order Detail: 03/30/19 09:07 Resuscitation Status Routine Resuscitation Status: FULL: Full Resuscitation MAR Reviewed: Yes Vital Signs & Weight: Vital Signs (12 hours) Temp Pulse Resp BP BP Pulse Ox 04/01/19 07:39 99.0 F 87 16 166/73 H 91 L 04/01/19 05:44 78 176/78 H 04/01/19 04:00 98.4 F 72 18 188/74 H 188/84 H 97 04/01/19 00:00 178/77 H 03/31/19 23:53 98.1 F 76 18 178/77 H 96 03/31/19 23:09 69 18 Weight Weight 140 lb 2 oz Most Recent Monitor Data Heart Rate from ECG 85 NIBP 183/120 NIBP BP-Mean 141 Respiration from ECG 24 SpO2 100 I&O: 03/31/19 04/01/19 04/02/19 06:59 06:59 06:59 Intake Total 410 340 Output Total 1000 Balance -590 340 Result Diagrams: 04/01/19 05:13 04/01/19 05:13 EKG Reviewed by me: Yes Phys Exam - Physical Examination Constitutional: NAD HEENT: PERRLA, moist MMs, sclera anicteric Neck: no JVD, supple Respiratory: no wheezing, no rales, no rhonchi Cardiovascular: RRR, no significant murmur, no rub Gastrointestinal: soft, non-tender, no distention Musculoskeletal: no edema, pulses present Neurological: non-focal, normal sensation Lymphatic: no nodes Psychiatric: normal affect Skin: no rash, normal turgor Dx/Plan (1) Abnormal MRI of head Code(s): R93.0 - ABNORMAL FINDINGS ON DX IMAGING OF SKULL AND HEAD, NEC Status : Acute (2) Acute metabolic encephalopathy Code(s): G93.41 - METABOLIC ENCEPHALOPATHY Status: Acute (3) Pulmonary nodule Code(s): R91.1 - SOLITARY PULMONARY NODULE Status: Acute (4) Seizure Code(s): R56.9 - UNSPECIFIED CONVULSIONS Status: Acute (5) UTI (urinary tract infection) Status: Acute (6) Tobacco abuse Code(s): Z72.0 - TOBACCO USE Status: Chronic - Plan cont current plan of care, plan discussed w/ family * cooper on discharge * she will need follow up with neurology and neurosurgery * discharge when all consultants are OK * medication reviewed as below * symptomatic treatment. Review of Systems - Review of Systems ENT: negative: Ear Pain, Ear Discharge, Nose Pain, Nose Discharge, Nose Congestion, Mouth Pain, Mouth Swelling, Throat Pain, Throat Swelling, Other Respiratory: negative: Cough, Dry, Shortness of Breath, Hemoptysis, SOB with Excertion, Pleuritic Pain, Sputum, Wheezing Cardiovascular: negative: chest pain, palpitations, orthopnea, paroxysmal nocturnal dyspnea, edema, light headedness, other Gastrointestinal: negative: Nausea, Vomiting, Abdominal Pain, Diarrhea, Constipation, Melena, Hematochezia, Other Genitourinary: negative: Dysuria, Frequency, Incontinence, Hematuria, Retention , Other Musculoskeletal: negative: Neck Pain, Shoulder Pain, Arm Pain, Back Pain, Hand Pain, Leg Pain, Foot Pain, Other Skin: negative: Rash, Lesions, Tony, Bruising, Other Neurological: Confusion. negative: Weakness, Numbness, Incoordination, Change in Speech, Seizures, Other - Medications/Allergies Allergies/Adverse Reactions: Allergies Allergy/AdvReac Type Severity Reaction Status Date / Time No Known Allergies Allergy Verified 03/30/19 10:24 Medications: Current Medications Acetaminophen (Tylenol) 650 mg PO Q4H PRN PRN Reason: Headache/Fever/Mild Pain (1-3) Dexamethasone (Decadron) 4 mg SLOW IVP 0500,1100,1700,2300 [facility] Last Admin: 04/01/19 05:42 Dose: 4 mg Enoxaparin Sodium (Lovenox) 40 mg SC 0900 [facility] Last Admin: 04/01/19 09:56 Dose: 40 mg Famotidine (Pepcid) 20 mg SLOW IVP Q12HR [facility] Last Admin: 04/01/19 09:57 Dose: 20 mg Hydralazine HCl (Apresoline) 10 mg SLOW IVP Q6H PRN PRN Reason: SBP > 180 Last Admin: 04/01/19 03:55 Dose: 10 mg Potassium Chloride 40 meq/ (Sodium Chloride) 270 mls @ 135 mls/hr IVPB ASDIR PRN PRN Reason: FOR SERUM K+ 2.5 - 3.5 Potassium Chloride 40 meq/ (Device) 100 mls @ 50 mls/hr IVPB ASDIR PRN PRN Reason: FOR SERUM K+ 2.5 - 3.5 Magnesium Sulfate 1 gm/ Sodium (Chloride) 102 mls @ 102 mls/hr IV PRN PRN PRN Reason: MAG LEVEL 1.4 - 2.0 Magnesium Sulfate 2 gm/ Device 50 mls @ 50 mls/hr IVPB ASDIR PRN PRN Reason: MAGNESIUM < 1.4 Potassium Phosphate 9 mmol/ (Sodium Chloride) 103 mls @ 25.75 mls/hr IVPB ASDIR PRN PRN Reason: Phosphate 1.0-1.8 Potassium Phosphate 12 mmol/ (Sodium Chloride) 254 mls @ 63.5 mls/hr IV ASDIR PRN PRN Reason: Serum phosphate 0.5-0.9 Potassium Phosphate 15 mmol/ (Sodium Chloride) 255 mls @ 63.75 mls/hr IV ASDIR PRN PRN Reason: Serum Phos < 0.5 Ceftriaxone Sodium 2 gm/ (Sodium Chloride) 100 mls @ 200 mls/hr IVPB Q24HR [facility] Last Admin: 03/31/19 13:37 Dose: 100 mls Levetiracetam 500 mg/ Device 100 mls @ 200 mls/hr IVPB BID [facility] Last Admin: 04/01/19 09:55 Dose: 100 mls Ipratropium [place] (Atrovent) 2.5 ml NEB [id number] [facility] Last Admin: 04/01/19 07:39 Dose: 2.5 ml Lorazepam (Ativan) 2 mg SLOW IVP Q6H PRN PRN Reason: Seizures Last Admin: 03/30/19 11:40 Dose: 2 mg Magnesium Oxide (Magnesium Oxide) 400 mg PO BIDPRN PRN PRN Reason: FOR SERUM MAG 1.4 - 2.0 Magnesium Oxide (Magnesium Oxide) 800 mg PO PRN PRN PRN Reason: FOR SERUM MAG < 1.4 Miscellaneous Medication (Phos-Nak) 1 pkt PO TIDPRN PRN PRN Reason: FOR PHOS LEVEL 1.0 - 1.8 Miscellaneous Medication (Phos-Nak) 2 pkt PO TIDPRN PRN PRN Reason: FOR PHOS LEVEL 0.5 - 1.0 Nicotine (Nicoderm Patch) 7 mg TD Q24HR [facility] Last Admin: 03/31/19 22:36 Dose: 7 mg Ccu Electrolyte (Replacement Protocol) 0 each FS PRN PRN PRN Reason: FOR ELECTROLYTE REPLACEMENT Ondansetron HCl (Zofran) 4 mg IVP Q6H PRN PRN Reason: Nausea/Vomiting Potassium Chloride (K-Dur) 40 meq PO ASDIR PRN PRN Reason: FOR SERUM K+ 2.5 - 3.5 Potassium Chloride (Klor-Con) 40 meq PER TUBE ASDIR PRN PRN Reason: FOR SERUM K+ 2.5-3.5 Sodium Chloride (Flush - Normal Saline) 10 ml IVF Q12HR [facility] Last Admin: 04/01/19 09:57 Dose: 10 ml Sodium Chloride (Flush - Normal Saline) 10 ml IVF PRN PRN PRN Reason: Saline Flush
[2019-04-01 11:49] VITALS: BP 175/74; TEMP 98.8
--- NOTE | 2019-04-01 12:11 | DIS ---
DATE OF ADMISSION: 03/30/2019 DATE OF DISCHARGE: 04/01/2019 DISCHARGE DISPOSITION: Home. PRIMARY DISCHARGE DIAGNOSES: Abnormal MRI of head; acute encephalopathy, resolved; seizure; urinary tract infection. SECONDARY DISCHARGE DIAGNOSES: Pulmonary nodule, tobacco abuse disorder. PRIMARY PROCEDURE/OPERATION: EEG, radiological investigation, CT brain, CT ruby of [place], and CT angiography of the neck, MRI brain, chest x-ray, CT chest, abdomen, and pelvis. SIGNIFICANT LABORATORY DATA: Hemoglobin 14.1, creatinine 1.07. Urinalysis suggestive of UTI. CSF negative for any infection. Urine drug screen negative. Urine culture grew E coli. Blood culture was negative. Gram variable fifi is contaminant. CSF culture is negative. DISCHARGE MEDICATIONS: 1. Macrobid 100 mg p.o. b.i.d. 2. Protonix 40 mg p.o. daily for 15 days. 3. Keppra 500 mg p.o. b.i.d. 4. Decadron 4 mg t.i.d. for 5 days, then b.i.d. for 5 days, and then daily for 5 days and then stop. CONTRAINDICATION: None. CODE STATUS: Full code. INPATIENT CONSULTANTS: Dr. Ebenezer Barron was consulted for Neurology, Dr. Sahu was following while in hospital. TEST RESULTS PENDING ON DISCHARGE: None. ALLERGIES: NO KNOWN DRUG ALLERGIES. DISCHARGE PLAN: Posthospital, the patient will follow up with Dr. Moy Fernandez, Dr. Sahu, and Dr. Juan Carlos Dyer. HOSPITAL COURSE: A 63-year-old female, who was admitted by Dr. Gentile. Please see her H and P for further detail. The patient was admitted for altered mental status as well as seizure. She was evaluated by Neurology while in hospital. There was also suspicious for a stroke. The patient had CT brain and CT ruby of [place] and CT angiography that came back negative. The patient had abnormal MRI finding and that was suspected for metastatic lesion and that is why Neurosurgery was consulted and they ordered chest, abdomen, and pelvis CT scan without any new finding. The patient was found with pulmonary nodule and that is why I have advised this patient to follow up with thin film technician for repeat imaging as an outpatient basis. At this point, the patient had abnormal MRI. It is not explained by any obvious diagnosis and neurosurgeon are not planning to do any surgical intervention. This patient is pretty much stable and this patient has some forgetfulness and that is why I advised to follow up with primary neurologist as well as primary neurosurgeon. This patient's family member did not have any more request and they agreed with the outpatient followup and outpatient further care. While in hospital, she was treated with Keppra. Her urinary tract infection was treated with Rocephin and on discharge, we changed to Macrobid. The patient was also empirically given acyclovir, which was discontinued. The patient was given Decadron as per Neurology recommendation, which was tapered as per Neurosurgery recommendation. The patient is doing relatively well. She will need more evaluation as an outpatient basis. Plan of care discussed with the family member and family member expressed understanding and they do not have any question and they are okay to go home today. Job ID: [id number]
== END 2019-04-01 12:12 | disposition home or self-care (01) | DRG 100 ==
LOC: ERS 05:06 → IMCU/EMU 09:29 → 2SE 03-31 15:16
PROVIDERS: ADMIT Hospitalist; ATTEND Hospitalist
DX: G40.909 Epilepsy, unspecified, not intractable, without status epilepticus (principal); G93.41 Metabolic encephalopathy; N39.0 Urinary tract infection, site not specified; F17.210 Nicotine dependence, cigarettes, uncomplicated; R93.0 Abnormal findings on diagnostic imaging of skull and head, not elsewhere classified; R91.1 Solitary pulmonary nodule; E87.6 Hypokalemia; Z72.89 Other problems related to lifestyle; Z87.442 Personal history of urinary calculi; Z79.899 Other long term (current) drug therapy
CPT/HCPCS: 36415; 36416; 51702; 62270; 70450; 70496; 70498; 70553; 71045; 71260; 74177; 80053; 80306; 80307; 81003; 81015; 82140; 82945; 83735; 84146; 84157; 84443; 84484; 85025; 86850; 86900; 86901; 87040; 87070; 87077; 87086; 87186; 87205; 89051; 90471; 90732; 93005; 94640; 95816; 95819; 96365; 96367; G0009; J0133; J0360; J0692; J0696; J1100; J1650; J1953; J2060; J3475; J3480; J3490; J7050; Q9966; S0028

== ENCOUNTER 2019-04-14 12:12 | Outpatient (CLI) | payer OTHER ==
--- NOTE | 2019-04-14 15:03 | MRI ---
Brain MRI with and without contrast: 04/14/2019 COMPARISON: 03/30/2019 HISTORY: Abnormal brain MRI, neoplasm of unspecified behavior of brain TECHNIQUE: Multiplanar multisequence MR imaging of the brain obtained with and without contrast FINDINGS: The diffusion weighted imaging demonstrates no evidence for acute infarction. There is abnormal increased T2/FLAIR signal involving the mesial temporal lobe/hippocampus on the rig ht. This extends posteriorly to involve the periventricular white matter along the course of the temporal horn of the right lateral ventricle. This also involves the white matter posterior to the at rium of the right lateral ventricle with a focal area of increased T2/FLAIR signal within the cortex and subcortical white matter of the anterior medial right occipital lobe. Abnormal signal exte nds superiorly to involve the splenium of the corpus callosum. Distribution of abnormal signal intensity is unchanged when compared to the recent prior brain MRI. The imaged paranasal sinuses/mastoid air cells appear well-aerated. Arterial flow voids at the axial level of the skull base appear unremarkable on the T2-weighted imaging. The gradient echo imaging demonstrates no evidence for intracranial hemorrhage. The postcontrast imaging demonstrates irregular nodular discontinuous enhancement in the region of th e abnormal signal intensity described above. This includes a 8 mm area of rim enhancement within the anterior medial aspect of the occipital lobe on the right. There is irregular enhancement posteri or and inferior to the atrium of the right lateral ventricle measuring 1.6 cm in AP dimension. There is a second focus of abnormal enhancement within the periventricular white matter posterior to the superior aspect of the atrium of the right lateral ventricle measuring 1.2 cm. In addition, there is curvilinear abnormal enhancement involving the surface of the hippocampus which could signif y tumor involvement or enhancement associated with recent seizure activity. The above described constellation of findings suggests primary brain neoplasm, such as glioblastoma. IMPRESSION: Abnormal intra-axial signal intensity on the right with discontinuous irregular areas of incomplete enhancement. This involves the splenium of the corpus callosum and is most consistent with aggressive primary brain neoplasm, such as glioblastoma.
== END 2019-04-14 12:13 | disposition home or self-care (01) ==
LOC: SCSMRI 12:12
PROVIDERS: ATTEND Neurological Surgery
DX: D49.6 Neoplasm of unspecified behavior of brain (principal); R90.89 Other abnormal findings on diagnostic imaging of central nervous system; R56.9 Unspecified convulsions
CPT/HCPCS: 70553

== ENCOUNTER 2019-04-17 08:42 | Inpatient (IN) | payer OTHER ==
--- NOTE | 2019-04-16 17:14 | HP ---
HISTORY OF PRESENT ILLNESS: Ms. Maldonado is in our office, we met at [facility] in late February after new onset of seizures. CT scan showed calcification just outside the right occipital horn of the lateral ventricle and MRI revealed hippocampal T2 signal and enhancement in the calcified area. She is started on Keppra and has had no more events. New MRI has been done. She wants to drive and work and be active, but wonders what the future holds. PAST MEDICAL HISTORY: Kidney stones, white coat syndrome, and hypokalemia. PAST SURGICAL HISTORY: Gallbladder, right wrist, and kidney stones. FAMILY HISTORY: Father is alive, diagnosed with heart disease. Mother is at 81, from many complications, diagnosed with diabetes. Children, alive. SOCIAL HISTORY: The patient is a smoker, smokes approximately half a pack of cigarettes a day. Uses alcohol and denies other drug use. MEDICATIONS: Lamictal, Ativan, and Macrobid. PHYSICAL EXAMINATION: CONSTITUTIONAL: Well appearing, well nourished, alert. RESPIRATIONS: Normal work of breathing on room air. NEUROLOGIC: Cranial nerves; if there is a left field cut, it is incomplete, extraocular muscles move eyes in all directions and primary gaze without nystagmus. The face is sensate, symmetrical. Hearing is normal to finger rub bilaterally. The palate elevates to midline. The tongue protrudes in the midline. Shoulder shrug and neck turn are strong. Cerebellar exam, there is no truncal ataxia. GAIT AND STATION: Gait and station are normal. Motor exam, no drift. SENSORY: No neglect. IMAGING: MRI, there are three separate areas of peripheral enhancing nodules with central low signal, all within a field of T2 signal change that starts at the hippocampus and extends backward towards the right splenium in the CC. This looks bigger than two weeks ago. ASSESSMENT AND PLAN: Malignant neoplasm of the occipital, temporal, and parietal lobes. Dr. Sahu has offered to do a stereotactic biopsy of the occipital horn lesion. The patient states that she understands the risks and is willing to proceed with surgery. Job ID: [id number]
[2019-04-17] MEDS ORDERED: Bacitracin Zinc Ointment 30 gm TUBE ONE (10:24)
[2019-04-17] MEDS ORDERED: Lidocaine 0.5%/Epinephrine 1:200,000 50 ml Vial ONE (10:40)
[2019-04-17] MEDS ORDERED: Sodium Chloride 0.9% 10 ML ONE (10:41)
[2019-04-17] MEDS ORDERED: Midazolam HCl 2 mg/2 ml Vial ONE (11:03)
[2019-04-17] MEDS ORDERED: Fentanyl 100 MCG/2 ML VIAL ONE (11:13)
[2019-04-17 11:27] LABS: #Basophils 0.1 thou/uL (0.0-0.2); #Eosinphils 0.1 thou/uL (0.0-0.7); #Lymphocytes 1.7 thou/uL (1.20-3.40); #Monocytes 0.4 thou/uL (0.11-0.59); #Neutrophils 5.2 thou/uL (1.40-6.50); %Basophils 1.2 % (0.0-1.0); %Eosinophils 1.6 % (0.0-10.0); %Lymphocytes 22.5 % (21.0-51.0); %Monocytes 5.3 % (0.0-10.0); %Neutrophils 69.4 % (42.0-75.0); Mean Corpuscular HGB CONC 35.6 g/dL (32.0-36.0); Mean Corpuscular Hemoglobin 37.6 pg (27.0-31.0); Mean Platelet Volume 6.9 fL (7.4-10.4); Platelet Count 256 thou/uL (130-400); RBC Distribution Width 11.4 % (11.5-14.5); Red Blood Cell (RBC) Count 3.72 mill/uL (4.20-5.40); White Blood Cell (WBC) Count 7.4 thou/uL (4.8-10.8)
[2019-04-17 11:39] LABS: PTT 29.3 SEC (22.9-36.1)
[2019-04-17 11:40] LABS: Prothrombin Time 13.5 SEC (12.0-14.7)
[2019-04-17] MEDS ORDERED: Labetalol HCl 100 MG/20 ML VIAL SLOW IVP PRN (13:32)
[2019-04-17] MEDS ORDERED: Docusate 100 MG CAP PO PRN (13:32)
[2019-04-17] MEDS ORDERED: hydrALAZINE 20 MG/ML VIAL SLOW IVP PRN (13:32)
[2019-04-17] MEDS ORDERED: diphenhydrAMINE 50 MG/ML VIAL IVP PRN (13:32)
[2019-04-17] MEDS ORDERED: Mag-Al 1200 mg/1200 mg/30 ML UDCUP PO PRN (13:32)
[2019-04-17] MEDS ORDERED: Promethazine HCl 25 MG/ML VIAL IM PRN (13:32)
[2019-04-17] MEDS ORDERED: Promethazine 25 MG TAB PO PRN (13:32)
[2019-04-17] MEDS ORDERED: diphenhydrAMINE 50 MG CAP PO PRN (13:32)
[2019-04-17] MEDS ORDERED: Acetaminophen 325 MG TAB PO PRN (13:32)
[2019-04-17] MEDS ORDERED: Morphine 4 MG/ML VIAL SLOW IVP PRN (13:32)
[2019-04-17] MEDS ORDERED: Morphine 2 MG/ML SYRINGE SLOW IVP PRN (13:32)
[2019-04-17] MEDS ORDERED: Ondansetron PF 4 MG/2 ML Vial IVP PRN (13:32)
[2019-04-17] MEDS ORDERED: Acetaminophen/Codeine 30-300mg Tablet PO PRN ×2 (13:32)
[2019-04-17] MEDS ORDERED: traMADol HCl 50 MG TAB PO PRN ×2 (13:38)
[2019-04-17] MEDS ORDERED: Dexamethasone 4 MG TAB PO SCH (15:00)
[2019-04-17 15:39] VITALS: BMI 26.9
[2019-04-17] MEDS: Sodium Chloride 0.9% 1,000 ML IV SCH (16:01)
--- NOTE | 2019-04-17 17:32 | OP ---
DATE OF PROCEDURE: 04/17/2019 PAPER RULER: Reta Diaz PA-C. PREOPERATIVE INDICATION: Make diagnosis, prevent neurological deterioration. PREOPERATIVE DIAGNOSES: Right parieto-occipital neoplasm, recent seizures. POSTOPERATIVE DIAGNOSES: Right parieto-occipital neoplasm, recent seizures. PROCEDURE PERFORMED: BrainLAB assisted stereotactic biopsy through a twist-drill hole of the right parieto-occipital lesion. PREOPERATIVE MEDICATIONS: Ancef 2 g IV. DRAIN NUMBER: 0. DRAIN TYPE: None. DESCRIPTION OF PROCEDURE: The patient was brought to the operating room. General endotracheal anesthesia was induced. A Taylor pin and headholder were attached to the patient's head. The patient was carefully positioned on the operating table with the right shoulder bumped and the head turned to the left. The head was immobilized with a Taylor attachment from the operating table. Using the preoperative BrainLAB protocol MRI scan and the BrainLAB registration devices, we generated 3-dimensional stereotactic space around the patient's head and confirmed our registration with surface landmarks. We then planned our entry point and our target within the lesion adjacent to the occipital horn of the lateral ventricle on the right side. Hair was removed over our planned entry point. The scalp was sterilely prepped and draped. We reconfirmed registration after draping and then opened the skin incision with a 10 blade knife. Using the RawDatauide biopsy probe guidance system, we guided a twist-drill into our planned trajectory. We drilled out the parietal bone all the way to the inner cortex. We irrigated bone chips out and then using the VarioGuide, we advanced our blunt biopsy needle through the brain parenchyma into the lesion. Three cores were taken at the proximal enhancing rim and three cores within the center of the lesion. All six cores were sent to Pathology. Once I confirmed that had adequate tissue for final diagnosis, we carefully withdrew the needle and irrigated copiously with bacitracin irrigation. We closed the skin with two toña. The patient was transferred back to the transport cart. This was a clean case, no contamination. Job ID: [id number]
[2019-04-17] MEDS ORDERED: ALPRAZolam 0.25 MG TAB PO PRN (17:53)
[2019-04-17] MEDS: Dexamethasone 4 MG TAB PO SCH ×2 (18:20→23:51)
[2019-04-17] MEDS: CEFAZOLIN 2 GM in Premix Bag 1 BAG IVPB SCH (19:54)
[2019-04-17] MEDS: Famotidine 20 MG TAB PO SCH (19:55)
[2019-04-17] MEDS: levETIRAcetam 500 MG TAB PO SCH (19:55)
[2019-04-17] MEDS ORDERED: ALPRAZolam 0.25 MG TAB PO SCH (23:59)
[2019-04-18] MEDS: Sodium Chloride 0.9% 1,000 ML IV SCH (03:11)
[2019-04-18] MEDS ORDERED: ALPRAZolam 0.25 MG TAB PO PRN (03:29)
[2019-04-18] MEDS: CEFAZOLIN 2 GM in Premix Bag 1 BAG IVPB SCH (04:04)
[2019-04-18] MEDS: Dexamethasone 4 MG TAB PO SCH (06:33)
[2019-04-18 07:34] VITALS: TEMP 97.9
[2019-04-18] MEDS: Famotidine 20 MG TAB PO SCH (08:07)
[2019-04-18] MEDS: levETIRAcetam 500 MG TAB PO SCH (08:07)
[2019-04-18] MEDS ORDERED: lamoTRIgine 100 MG TAB PO SCH (09:00)
--- NOTE | 2019-04-18 09:44 | PRG ---
DATE OF SERVICE: 04/18/2019 Ms. Maldonado is one day post right-sided stereotactic brain biopsy. The patient is doing well this morning. She had no events overnight. She is getting up using bathroom. She is waiting for breakfast. Has no complaints this morning. She is moving all 4 extremities well. No headache. Incision is covered and clean. There is no discharge. Her vitals have been stable and discharge orders have been discussed with the patient. She understands and she has follow up arranged. The patient will be discharged later today. Job ID: [id number]
[2019-04-18 12:01] VITALS: BP 132/67
== END 2019-04-18 11:27 | disposition home or self-care (01) | DRG 26 ==
LOC: SURG A 10:22 → CCU 14:49
PROVIDERS: ADMIT Neurological Surgery; ATTEND Neurological Surgery
PROC: 0NB Head and Facial Bones, Excision (ICD-10-PCS; principal; 2019-04-17)
DX: C71.3 Malignant neoplasm of parietal lobe (principal); C41.0 Malignant neoplasm of bones of skull and face; C79.31 Secondary malignant neoplasm of brain; F17.210 Nicotine dependence, cigarettes, uncomplicated; Z87.442 Personal history of urinary calculi
CPT/HCPCS: 36415; 70553; 85025; 85610; 85730; 88307; 88331; 88334; J0690; J2001; J2250; J3010; J3490; J8540

== ENCOUNTER 2019-05-23 11:02 | Inpatient (IN) | payer OTHER ==
--- NOTE | 2019-05-23 11:58 | RAD ---
EXAM: XR Chest 1 View Portable PROVIDED CLINICAL HISTORY: Weakness COMPARISON: 03/30/2019 FINDINGS: Cardiac and mediastinal silhouette is unchanged in appearance. Vascular calcification is noted. Airsp cara disease left mid and lateral upper lung zones. No pleural fluid or pneumothorax apparent. IMPRESSION: Left hemithoracic airspace disease, compatible with pneumonia in the appropriate clinical context. Fo llow-up is recommended.
[2019-05-23 12:36] LABS: #Basophils 0.1 thou/uL (0.0-0.2); #Lymphocytes 0.2 thou/uL (1.20-3.40); #Monocytes 0.3 thou/uL (0.11-0.59); #Neutrophils 9.3 thou/uL (1.40-6.50); %Basophils 0.8 % (0.0-1.0); %Eosinophils 0.1 % (0.0-10.0); %Lymphocytes 2.2 % (21.0-51.0); %Monocytes 2.7 % (0.0-10.0); %Neutrophils 94.3 % (42.0-75.0); Hemoglobin 11.3 g/dL (12.0-16.0); Mean Corpuscular HGB CONC 32.1 g/dL (32.0-36.0); Mean Corpuscular Hemoglobin 34.1 pg (27.0-31.0); Mean Platelet Volume 6.9 fL (7.4-10.4); Platelet Count 285 thou/uL (130-400); RBC Distribution Width 12.5 % (11.5-14.5); Red Blood Cell (RBC) Count 3.31 mill/uL (4.20-5.40); White Blood Cell (WBC) Count 9.9 thou/uL (4.8-10.8)
[2019-05-23 12:59] LABS: ALT (SGPT) 25 U/L (8-55); AST (SGOT) 23 U/L (5-34); Albumin 3.2 g/dL (3.4-4.8); Alkaline Phosphatase 98 U/L (40-150); Anion Gap 14 mmol/L (10-20); BUN (Urea Nitrogen) 16 mg/dL (9.8-20.1); Bilirubin, Total 0.5 mg/dL (0.2-1.2); Calc. Creatinine Clearance 0 mL/min (70-130); Calcium 9.2 mg/dL (7.8-10.44); Carbon Dioxide 21 mmol/L (23-31); Chloride 102 mmol/L (98-107); Estimated GFR-MDRD Greater than 90; Globulin 3.5 g/dL (2.4-3.5); Glucose 124 mg/dL (80-115); Magnesium 1.9 mg/dL (1.6-2.6); Potassium 4.1 mmol/L (3.5-5.1); Protein, Total 6.7 g/dL (6.0-8.3); Sodium 133 mmol/L (136-145)
[2019-05-23 13:07] LABS: Bacteria/HPF None Seen HPF (None Seen); Bilirubin Negative (Negative); Blood, Urine Negative (Negative); Clarity Clear (Clear); Glucose, Urine (Dipstick) Normal (Negative); Leukocyte 25 Leu/uL (Negative); Nitrite Negative (Negative); Protein, Urine (Dipstick) Negative (Neg-Trace); RBC/HPF 0-3 HPF (0-3); Squamous Epithelial 0-3 HPF (0-3)
[2019-05-23] MEDS ORDERED: ISOVUE-370 76%-LOCM 1 ML ONE (13:38)
--- NOTE | 2019-05-23 15:20 | CT ---
CTA Angio Chest W WO Con HISTORY: History of glioblastoma. Chest pain. Cough. COMPARISON: 03/31/2019 CT exam of the chest abdomen and pelvis and chest x-ray done today. FINDINGS: There are small blebs in both lung apices. The right lung is clear of any infiltrative proc ess. There is a stable appearance to a 5 mm right middle lobe pulmonary nodule. There are atelectatic changes in the lung bases and changes that would suggest some reticular scar. There is an apical posterior segment left upper lobe infiltrate. There is no significant mediastinal or hilar adenopathy. There is good pulmonary artery opacification and no CT evidence for pulmonary embolus. Visualized liver parenchyma shows no focal findings. Impression: 1. No CT evidence of pulmonary embolus. 2. Left upper lobe pneumonia.
[2019-05-23] MEDS ORDERED: Nicotine 14 MG PATCH ONE (15:44)
[2019-05-23] MEDS ORDERED: Nicotine 21 MG PATCH TOP SCH (16:00)
[2019-05-23] MEDS ORDERED: Piperacillin/Tazobactam 4.5 GM VIAL ONE (16:09)
[2019-05-23] MEDS ORDERED: ALPRAZolam 0.5 MG TAB ONE (16:26)
[2019-05-23 18:16] VITALS: BMI 25.3
[2019-05-23] MEDS ORDERED: Enoxaparin Sodium 40 MG/0.4 ML SYRINGE SC SCH (20:03)
[2019-05-23] MEDS ORDERED: Ondansetron PF 4 MG/2 ML Vial IVP PRN ×2 (20:03)
[2019-05-23] MEDS ORDERED: Ondansetron ODT 4 MG TAB PO PRN ×2 (20:03)
[2019-05-23] MEDS ORDERED: Acetaminophen 325 MG TAB PO PRN (20:03)
[2019-05-23] MEDS: ALPRAZolam 0.25 MG TAB PO SCH (21:25)
[2019-05-23] MEDS: Nicotine 21 MG PATCH TD SCH (21:42)
[2019-05-23] MEDS: lamoTRIgine 100 MG TAB PO SCH (21:43)
[2019-05-23] MEDS: Sodium Chloride 0.9% 1,000 ML IV SCH (21:43)
[2019-05-23] MEDS: Piperacillin/Tazobactam 3.375 GM in Sodium Chloride 0.9% 100 ML IVPB SCH (22:21)
--- NOTE | 2019-05-24 | HP ---
PRIMARY CARE PHYSICIAN: Juan Carlos Dyer MD ONCOLOGIST: Bryan Rajan MD CHIEF COMPLAINT: Extremely weak and not eating. HISTORY OF PRESENT ILLNESS: Ms. Maldonado is a pleasant 63-year-old female, who was recently diagnosed with glioblastoma. She also had a seizure as a result of the brain tumor. She started on chemotherapy about 2 weeks ago and is taking temozolomide. About 5 days ago, she started not eating and basically would only drink one soda, a Big Red, throughout the day. Her told me over the phone that last night he forced her to eat some meat loaf, but that is about all that she has had in several days. She also became extremely weak to the point where she could not hardly walk. She walks with a walker and basically would just stand and almost practically collapse or just fall down into the ground when she tried to walk. She denies having any fevers, chills. No nausea, no vomiting, no fevers, no chills. She says she coughs occasionally. Family members in the room say that she has also been sleeping a whole lot more. Her says that ever since starting radiation, her bones have been hurting basically "all over." She came to the ER for evaluation. There, they did a CT angiogram of her chest and noticed that she had a left upper lobe pneumonia. REVIEW OF SYSTEMS: CONSTITUTIONAL: She denies any fevers, chills, no night sweats, no weight loss, but she has extremely poor appetite. HEENT: No headaches. No dizziness. No visual changes. No sore throat, rhinorrhea, neck pain. No adenopathy. PULMONARY: No hemoptysis. No cough. No wheezing. CARDIOVASCULAR: She denies any chest pain. No shortness of breath. No PND. No orthopnea. GASTROINTESTINAL: No abdominal pain. No nausea, no vomiting, but she has not had a bowel movement in several days. GENITOURINARY: No urinary frequency or hematuria. No hesitancy. MUSCULOSKELETAL: She complains of pains in "all of her bones" and both her upper and lower extremities as well as generalized muscle weakness. NEUROLOGIC: No focal weakness. No recent seizures. PSYCHIATRIC: Her family says that she is "very emotional." She is actually tearful when I tried to talk to her, but no expressed depression. No suicidal or homicidal ideation. SKIN AND INTEGUMENT: No skin changes. No rashes. PAST MEDICAL HISTORY: Recent diagnosis of glioblastoma, seizures, hypertension, and she had a recent fracture of her wrist. PAST SURGICAL HISTORY: She has had a cholecystectomy and she is undergoing radiation treatments. ALLERGIES: NO KNOWN DRUG ALLERGIES. SOCIAL HISTORY: Her sister is her medical [id number]. She would want to be a do not resuscitate. She has 2 living children. She is . She smoked for about 40 years. Denies any alcohol use. CURRENT MEDICATIONS: Include; 1. Temozolomide 120 mg daily. 2. Alprazolam 0.25 mg twice daily. 3. Amlodipine 5 mg daily. 4. Prilosec 20 mg daily. 5. Bactrim DS on Sunday, Sunday, and Sunday. 6. Lamotrigine 100 mg twice daily. 7. Decadron 4 mg daily. PHYSICAL EXAMINATION: GENERAL: She is alert. She is oriented. She has a very flat affect. She is well developed and well nourished. VITAL SIGNS: Blood pressure is 120/72, heart rate 64, respiratory rate of 18, temperature is 97.6, and O2 saturation is 93% on room air. HEENT: Her pupils are equal, round, and reactive to light. Extraocular muscles are intact. Sclerae anicteric. Throat, there is no erythema, no exudates. NECK: No adenopathy. No bruits. LUNGS: Clear to auscultation. There is no wheezing, no rales, no rhonchi. CARDIOVASCULAR: She has a normal S1, S2. I did not appreciate an S3 or S4. No murmurs, clicks, or rubs. ABDOMEN: Obese, it is soft. She has some mild lower abdominal tenderness. There is no rebound, no guarding, no organomegaly. EXTREMITIES: There is no clubbing or cyanosis. No edema. NEUROLOGICAL: Cranial nerves 2 through 12 are grossly intact. Her muscle strength is 5/5 in both upper and lower extremities. SKIN AND INTEGUMENT: No significant skin changes. No rash. LAB RESULTS: Urinalysis was essentially negative except for 4-6 wbcs'. Chemistry; sodium is 133, potassium 4.1, chloride is 102, CO2 is 21, BUN of 16, creatinine is 0.58, glucose is 124. White blood cell count is 9.9, hemoglobin 11.3, hematocrit is 35.2, and platelet count is 285. ASSESSMENT: This is a very pleasant 63-year-old female, who presents to the ER with generalized weakness, poor appetite, and was found to have a left upper lobe pneumonia. She has also recently been hospitalized. Therefore, this is likely a hospital-acquired pneumonia or healthcare associated pneumonia. She will be admitted, started on broad-spectrum IV antibiotics as well as IV fluids. We will also consult PT and OT to assess her general needs and also treat for other symptoms such as her bone pain. 1. Glioblastoma. Continue the Decadron. 2. Seizure disorder. Continue lamotrigine as well as place her on seizure precautions. 3. We will also place her on DVT as well as GI prophylaxis. If her flat affect and general depressed mood continue, then we will need to also consider starting an antidepressant. Job ID: [id number]
[2019-05-24] MEDS: ALPRAZolam 0.25 MG TAB PO SCH ×3 (00:48→20:08)
[2019-05-24] MEDS: Piperacillin/Tazobactam 3.375 GM in Sodium Chloride 0.9% 100 ML IVPB SCH ×4 (03:36→22:30)
[2019-05-24] MEDS: Vancomycin HCl 1 GM in Premix Bag 1 BAG IVPB SCH ×2 (04:49→16:39)
[2019-05-24 06:42] LABS: #Lymphocytes 0.5 thou/uL (1.20-3.40); #Monocytes 0.3 thou/uL (0.11-0.59); #Neutrophils 6.4 thou/uL (1.40-6.50); %Basophils 0.5 % (0.0-1.0); %Eosinophils 0.6 % (0.0-10.0); %Lymphocytes 7.4 % (21.0-51.0); %Monocytes 4.7 % (0.0-10.0); %Neutrophils 86.9 % (42.0-75.0); Hemoglobin 11.1 g/dL (12.0-16.0); Mean Corpuscular Hemoglobin 35.1 pg (27.0-31.0); Platelet Count 300 thou/uL (130-400); RBC Distribution Width 12.4 % (11.5-14.5); Red Blood Cell (RBC) Count 3.17 mill/uL (4.20-5.40); White Blood Cell (WBC) Count 7.4 thou/uL (4.8-10.8)
[2019-05-24 07:01] LABS: Anion Gap 13 mmol/L (10-20); BUN (Urea Nitrogen) 20 mg/dL (9.8-20.1); Calc. Creatinine Clearance 89 mL/min (70-130); Calcium 9.1 mg/dL (7.8-10.44); Carbon Dioxide 22 mmol/L (23-31); Chloride 105 mmol/L (98-107); Estimated GFR-MDRD Greater than 90; Glucose 108 mg/dL (80-115); Potassium 3.7 mmol/L (3.5-5.1); Sodium 136 mmol/L (136-145)
[2019-05-24] MEDS: Dexamethasone 4 MG TAB PO SCH (08:07)
[2019-05-24] MEDS: lamoTRIgine 100 MG TAB PO SCH ×2 (08:07→20:08)
[2019-05-24] MEDS: Amlodipine 5 MG TAB PO SCH (08:08)
[2019-05-24] MEDS: Sodium Chloride 0.9% 1,000 ML IV SCH ×2 (10:06→15:32)
[2019-05-24] MEDS ORDERED: TEMOZOLOMIDE 100 MG PO SCH (10:15)
[2019-05-24] MEDS ORDERED: TEMOZOLOMIDE 20 MG PO SCH (10:15)
--- NOTE | 2019-05-24 12:37 | PDOC.PN ---
- Subjective Encounter Start Date: 05/24/19 Encounter Start Time: 12:36 Ms. Maldonado was seen today in follow-up of Pneumonia and generalized weakness. Her appetite has improved some, but her is at the bedside, and sayss he is still very weak. - Objective Resuscitation Status - Order Detail: 05/23/19 19:57 Resuscitation Status Routine Resuscitation Status: DNAR: NO Resuscitation Discussed with: Discussed with the patient's sister MAR Reviewed: Yes Vital Signs & Weight: Vital Signs (12 hours) Temp Pulse Resp BP BP Pulse Ox 05/24/19 12:09 98.0 F 78 18 103/62 97 05/24/19 08:08 78 107/70 05/24/19 07:39 98.3 F 78 20 107/70 97 05/24/19 04:00 98.3 F 73 16 128/79 98 Weight Weight 125 lb 10.616 oz I&O: 05/23/19 05/24/19 05/25/19 06:59 06:59 06:59 Intake Total 950 Balance 950 Result Diagrams: 05/24/19 05:53 05/24/19 05:53 Phys Exam - Physical Examination HEENT: PERRLA + rales at the right base Cardiovascular: RRR, no significant murmur, no rub Gastrointestinal: soft, non-tender, no distention, positive bowel sounds Musculoskeletal: no edema, pulses present Dx/Plan (1) Healthcare-associated pneumonia Code(s): J18.9 - PNEUMONIA, UNSPECIFIED ORGANISM Status: Acute (2) Glioblastoma Code(s): C71.9 - MALIGNANT NEOPLASM OF BRAIN, UNSPECIFIED Status: Acute (3) Hypertension Code(s): I10 - ESSENTIAL (PRIMARY) HYPERTENSION Status: Chronic - Plan * Healthcare associated pneumonia- continue Vancomycin and Zosyn * HTN- blood pressure is stable * Glioblastoma- continue Temazolomide * Seizures- due to the brain tumor- continue Lamictal and seizure precautions * Depression- will add Duloxetine * Continue PT
[2019-05-24] MEDS ORDERED: Milk Of Magnesia 30 ML UDCUP PO PRN (17:42)
[2019-05-24] MEDS ORDERED: Polyethylene Glycol 3350 17 GM Packet PO PRN (17:43)
[2019-05-24] MEDS: Docusate 100 MG CAP PO SCH (20:08)
[2019-05-24] MEDS: Nicotine 21 MG PATCH TD SCH (20:09)
[2019-05-25] MEDS: Sodium Chloride 0.9% 1,000 ML IV SCH ×3 (02:40→22:27)
[2019-05-25] MEDS: Piperacillin/Tazobactam 3.375 GM in Sodium Chloride 0.9% 100 ML IVPB SCH ×4 (03:40→20:48)
[2019-05-25] MEDS ORDERED: Magnesium Citrate 300 ML BOT PO SCH (05:00)
[2019-05-25 05:04] LABS: Vancomycin, Trough 11.9 ug/mL
[2019-05-25] MEDS: Vancomycin HCl 1 GM in Premix Bag 1 BAG IVPB SCH ×2 (05:21→18:04)
[2019-05-25] MEDS: ALPRAZolam 0.25 MG TAB PO SCH ×2 (08:57→20:47)
[2019-05-25] MEDS: Dexamethasone 4 MG TAB PO SCH (08:57)
[2019-05-25] MEDS: Docusate 100 MG CAP PO SCH ×2 (08:58→20:48)
[2019-05-25] MEDS: DULoxetine 30 MG CAP PO SCH (08:58)
[2019-05-25] MEDS: Amlodipine 5 MG TAB PO SCH (08:58)
[2019-05-25] MEDS: lamoTRIgine 100 MG TAB PO SCH ×2 (08:58→20:47)
[2019-05-25] MEDS: TEMOZOLOMIDE 100 MG PO SCH (09:14)
[2019-05-25 09:15] LABS: #Eosinphils 0.1 thou/uL (0.0-0.7); #Lymphocytes 0.6 thou/uL (1.20-3.40); #Monocytes 0.2 thou/uL (0.11-0.59); #Neutrophils 6.6 thou/uL (1.40-6.50); %Basophils 0.3 % (0.0-1.0); %Eosinophils 1.1 % (0.0-10.0); %Lymphocytes 7.5 % (21.0-51.0); %Monocytes 3.1 % (0.0-10.0); Hemoglobin 11.7 g/dL (12.0-16.0); Mean Corpuscular HGB CONC 33.5 g/dL (32.0-36.0); Mean Corpuscular Hemoglobin 35.8 pg (27.0-31.0); Mean Platelet Volume 6.9 fL (7.4-10.4); Platelet Count 346 thou/uL (130-400); RBC Distribution Width 12.4 % (11.5-14.5); Red Blood Cell (RBC) Count 3.27 mill/uL (4.20-5.40); White Blood Cell (WBC) Count 7.5 thou/uL (4.8-10.8)
[2019-05-25] MEDS: TEMOZOLOMIDE 20 MG PO SCH (09:15)
[2019-05-25 09:36] LABS: Anion Gap 13 mmol/L (10-20); BUN (Urea Nitrogen) 12 mg/dL (9.8-20.1); Calc. Creatinine Clearance 91 mL/min (70-130); Calcium 8.7 mg/dL (7.8-10.44); Carbon Dioxide 20 mmol/L (23-31); Chloride 106 mmol/L (98-107); Estimated GFR-MDRD Greater than 90; Glucose 97 mg/dL (80-115); Potassium 3.4 mmol/L (3.5-5.1); Sodium 136 mmol/L (136-145)
--- NOTE | 2019-05-25 14:50 | PDOC.PN ---
- Subjective Encounter Start Date: 05/25/19 Encounter Start Time: 14:49 Ms. Maldonado was seen today in follow-up of generalized weakness and pneumonia. She is feeling better. she is much more talkative. She was up with PT and walked a few steps. Her appetite has improved. - Objective Resuscitation Status - Order Detail: 05/23/19 19:57 Resuscitation Status Routine Resuscitation Status: DNAR: NO Resuscitation Discussed with: Discussed with the patient's sister KAT Reviewed: Yes Vital Signs & Weight: Vital Signs (12 hours) Temp Pulse Resp BP BP Pulse Ox 05/25/19 11:30 98.8 F 82 20 110/68 94 L 05/25/19 08:58 73 129/80 05/25/19 08:00 94 L 05/25/19 07:25 98.1 F 73 20 129/80 96 05/25/19 04:00 97.7 F 71 18 144/81 H 94 L Weight Admit Weight 125 lb 10.616 oz Weight 125 lb 10.616 oz I&O: 05/24/19 05/25/19 05/26/19 06:59 06:59 06:59 Intake Total 950 1440 Balance 950 1440 Result Diagrams: 05/25/19 08:57 05/25/19 08:57 Phys Exam - Physical Examination HEENT: PERRLA Respiratory: no wheezing, no rales, no rhonchi, clear to auscultation bilateral Cardiovascular: RRR, no significant murmur, no rub Gastrointestinal: soft, non-tender, no distention, positive bowel sounds Musculoskeletal: no edema, pulses present Dx/Plan (1) Healthcare-associated pneumonia Code(s): J18.9 - PNEUMONIA, UNSPECIFIED ORGANISM Status: Acute (2) Glioblastoma Code(s): C71.9 - MALIGNANT NEOPLASM OF BRAIN, UNSPECIFIED Status: Acute (3) Hypertension Code(s): I10 - ESSENTIAL (PRIMARY) HYPERTENSION Status: Chronic (4) Depression Code(s): F32.9 - MAJOR DEPRESSIVE DISORDER, SINGLE EPISODE, UNSPECIFIED Status : Chronic - Plan * Healthcare associated pneumonia- she is much improved. She looks like an entirely different person today. Hopefully antibiotics can be transitioned to oral tomorrow * Depression- continue Duloxetine * Glioblastoma- continue Temozolomide * HTN- blood pressure is stable * Possible home soon.
[2019-05-25] MEDS: Nicotine 21 MG PATCH TD SCH (20:49)
[2019-05-26] MEDS: Piperacillin/Tazobactam 3.375 GM in Sodium Chloride 0.9% 100 ML IVPB SCH ×2 (03:53→08:56)
[2019-05-26] MEDS: Vancomycin HCl 1 GM in Premix Bag 1 BAG IVPB SCH (05:39)
[2019-05-26] MEDS: TEMOZOLOMIDE 100 MG PO SCH (05:48)
[2019-05-26] MEDS: TEMOZOLOMIDE 20 MG PO SCH (05:48)
[2019-05-26] MEDS ORDERED: TEMOZOLOMIDE 100 MG PO SCH ×3 (06:00→10:00)
[2019-05-26] MEDS ORDERED: TEMOZOLOMIDE 20 MG PO SCH ×2 (06:00→10:00)
[2019-05-26] MEDS ORDERED: Potassium Chloride 20 MEQ TAB PO SCH (07:30)
[2019-05-26 08:24] LABS: Anion Gap 11 mmol/L (10-20); BUN (Urea Nitrogen) 8 mg/dL (9.8-20.1); Calc. Creatinine Clearance 98 mL/min (70-130); Calcium 8.2 mg/dL (7.8-10.44); Carbon Dioxide 23 mmol/L (23-31); Chloride 104 mmol/L (98-107); Estimated GFR-MDRD Greater than 90; Glucose 98 mg/dL (80-115); Potassium 3.3 mmol/L (3.5-5.1); Sodium 135 mmol/L (136-145)
[2019-05-26] MEDS: Dexamethasone 4 MG TAB PO SCH (08:25)
[2019-05-26] MEDS: ALPRAZolam 0.25 MG TAB PO SCH (08:25)
[2019-05-26] MEDS: lamoTRIgine 100 MG TAB PO SCH (08:25)
[2019-05-26] MEDS: Docusate 100 MG CAP PO SCH (08:26)
[2019-05-26] MEDS: DULoxetine 30 MG CAP PO SCH (08:26)
[2019-05-26] MEDS: Amlodipine 5 MG TAB PO SCH (08:26)
[2019-05-26] MEDS: Sodium Chloride 0.9% 1,000 ML IV SCH (08:30)
[2019-05-26] MEDS ORDERED: Sulfameth/Trimethoprim DS 800-160mg TAB PO SCH (09:00)
--- NOTE | 2019-05-26 13:05 | PDOC.PN ---
- Subjective Encounter Start Date: 05/26/19 Encounter Start Time: 13:02 Ms. Maldonado was seen for follow-up of pneumonia. She is feeling much better. - Objective Resuscitation Status - Order Detail: 05/23/19 19:57 Resuscitation Status Routine Resuscitation Status: DNAR: NO Resuscitation Discussed with: Discussed with the patient's sister KAT Reviewed: Yes Vital Signs & Weight: Vital Signs (12 hours) Temp Pulse Resp BP BP Pulse Ox 05/26/19 12:34 98.0 F 72 18 125/74 93 L 05/26/19 08:26 70 157/83 H 05/26/19 08:12 98.3 F 70 18 157/83 H 94 L 05/26/19 08:00 94 L 05/26/19 04:00 98.3 F 70 20 125/69 95 Weight Admit Weight 125 lb 10.616 oz Weight 125 lb 10.616 oz I&O: 05/25/19 05/26/19 05/27/19 06:59 06:59 06:59 Intake Total 1440 4180 Balance 1440 4180 Result Diagrams: 05/25/19 08:57 05/26/19 07:55 Phys Exam - Physical Examination HEENT: PERRLA Respiratory: no wheezing, no rales, no rhonchi, clear to auscultation bilateral Cardiovascular: RRR, no significant murmur, no rub Gastrointestinal: soft, non-tender, no distention, positive bowel sounds Musculoskeletal: no edema Dx/Plan (1) Healthcare-associated pneumonia Code(s): J18.9 - PNEUMONIA, UNSPECIFIED ORGANISM Status: Acute (2) Glioblastoma Code(s): C71.9 - MALIGNANT NEOPLASM OF BRAIN, UNSPECIFIED Status: Acute (3) Hypertension Code(s): I10 - ESSENTIAL (PRIMARY) HYPERTENSION Status: Chronic (4) Depression Code(s): F32.9 - MAJOR DEPRESSIVE DISORDER, SINGLE EPISODE, UNSPECIFIED Status : Chronic - Plan * Pneumonia- clinically improved * Stable for discharge home.
[2019-05-26] MEDS ORDERED: ALPRAZolam 0.25 MG TAB PO SCH (14:00)
--- NOTE | 2019-05-26 14:12 | DIS ---
DATE OF ADMISSION: 05/23/2019 DATE OF DISCHARGE: 05/26/2019 PRIMARY CARE PHYSICIAN: Juan Carlos Dyer MD. DISCHARGE DISPOSITION: Home. PRIMARY DISCHARGE DIAGNOSES: 1. Healthcare-associated pneumonia. 2. Dehydration. 3. Glioblastoma. 4. Seizure disorder. DISCHARGE MEDICATIONS: Include; 1. Levaquin 500 mg p.o. daily. 2. Cymbalta 30 mg daily. 3. Temozolomide 120 mg daily. 4. Omeprazole 20 mg daily. 5. Lamotrigine 100 mg twice daily. 6. Decadron 4 mg daily. 7. Amlodipine 5 mg daily. 8. Alprazolam 0.25 mg twice a day. PROCEDURES DONE DURING ADMISSION: The patient had a CT angiogram of the chest showing no evidence of pulmonary embolism, but there was a left upper lobe pneumonia. CODE STATUS: DNAR. ALLERGIES: NO KNOWN DRUG ALLERGIES. HOSPITAL COURSE: Ms. Maldonado is a very pleasant 63-year-old female, who presented to the emergency room complaining of extremely weak and not eating. She was evaluated and found to have a left upper lobe infiltrate. She was treated for healthcare-acquired pneumonia. She was also hydrated. She improved with therapy and at the time of discharge, she was active, walking around in the room and looked like a completely different person. She was stabilized and able to be discharged home with close outpatient followup. Also noted, the patient was started on duloxetine due to some mild depression. Job ID: [id number]
[2019-05-26 14:56] VITALS: BP 125/58; TEMP 98.1
--- NOTE | 2019-05-27 11:21 | PQF ---
DATE: 05-27-19 ATTN: DR. CLAYTON ESPITIA Please exercise your independent, professional judgment in responding to the clarification form. Clinical indicators are provided on the bottom of this form for your review Please check appropriate box(s): [ ] Aspiration Pneumonia [ ] Gram negative Pneumonia [ ] Other diagnosis [ ] Unable to determine In addition, please specify: Present on Admission (POA): [ ] Yes [ ] No [ ] Unable to determine For continuity of documentation, please document condition throughout progress notes and discharge summary. Thank You. CLINICAL INDICATORS - SIGNS / SYMPTOMS / LABS: H&P: CARLO PNEUMONIA, [facility] ACQUIRED PNEUMONIA OR HEALTHCARE ASSOCIATED PNEUMONIA ER: VANCOMYCIN IV, ZOSYN IV RISK FACTORS: ER: GENERALIZED WEAKNESS, MALAISE, H/O GLIOBLASTOMA, TREATMENTS: ER: VANCOMYCIN IV, ZOSYN IV (This form is maintained as a part of the permanent medical record) 2015 [employer] All Rights Reserved [email or web address] Office: [phone] [facility] NETWORKAdriana
== END 2019-05-26 14:16 | disposition home or self-care (01) | DRG 194 ==
LOC: ERS 11:02 → T4-A 16:27
PROVIDERS: ADMIT Internal Medicine; ATTEND Internal Medicine
DX: J18.9 Pneumonia, unspecified organism (principal); C71.9 Malignant neoplasm of brain, unspecified; I10 Essential (primary) hypertension; Z66 Do not resuscitate; G40.909 Epilepsy, unspecified, not intractable, without status epilepticus; F17.210 Nicotine dependence, cigarettes, uncomplicated; F32.9 Major depressive disorder, single episode, unspecified; E86.0 Dehydration; Z92.21 Personal history of antineoplastic chemotherapy; Z90.49 Acquired absence of other specified parts of digestive tract; Z92.3 Personal history of irradiation; Z79.899 Other long term (current) drug therapy; Z98.51 Tubal ligation status
CPT/HCPCS: 36415; 71045; 71275; 77336; 77386; 77417; 80048; 80053; 80202; 81003; 81015; 82248; 83605; 83615; 83735; 83880; 84100; 84443; 84484; 84550; 85025; 93005; 96365; 96375; J2543; J3370; J3490; J8540; Q9966

== ENCOUNTER 2019-07-28 10:44 | Outpatient (CLI) | payer OTHER ==
--- NOTE | 2019-07-28 13:12 | MRI ---
Brain MRI with and without contrast: 07/28/2019 COMPARISON: 04/14/2019 HISTORY: Reevaluate intra-axial lesion TECHNIQUE: Multiplanar multisequence MR imaging of the brain obtained with and without contrast FINDINGS: The diffusion weighted imaging demonstrates no evidence for acute infarction. On the gradient echo imaging there are subtle new small foci of blooming artifact posterior to the ch oroid plexus in the region of the atrium of the right lateral ventricle which could signify minute blood products on the basis of intratumoral hemorrhage or prior biopsy. On today's examination there is abnormal increased T2 and FLAIR signal within the splenium of the cor pus callosum extending to the left of midline, posterior to the atrium of the left lateral ventricle. There is increased T2 and FLAIR signal within the posterior medial aspect of the occipital lobe posterior to and medial to the atrium and posterior horn of the right lateral ventricle. This increased T2 and FLAIR signal is on the basis of tumor and associated vasogenic edema, and measures a pproximately 4.7 cm in AP dimension and 3.3 cm in transverse dimension at the axial level of the atria of the lateral ventricles. This abnormal T2 signal intensity has significantly progressed when compared to the prior study at which time altered T2 signal measured in the 2.5 x 1.0 cm range. There is mild associated increased T2 and FLAIR signal within the mesial temporal lobe on the right a s before. There is worsening mass effect on the atrium of the right lateral ventricle, which is flattened. There is no evidence for midline shift or ventricular enlargement. The postcontrast imaging demonstrates 3 separate foci of intra-axial enhancement on the right, which includes a nodular area of enhancement measuring 1.1 cm posterior to the atrium of the right lateral ventricle, previously measuring approximately 1.1 cm in AP dimension, thus unchanged. There i s an additional area of nodular enhancement at the axial level of the temporal horn of the right lateral ventricle measuring 1.7 cm in AP dimension, unchanged as well. A third focus of enhancement w ithin the inferior medial aspect of the occipital lobe on the right, when measuring at the axial level of the midbrain, measures 1.7 cm in AP dimension, increased when compared to the prior study at which time it measured 8 mm. No abnormal enhancement is noted within the brainstem or posterior fossa. No abnormal enhancement is seen involving left cerebral hemisphere. IMPRESSION: Worsening edema associated with enhancing mass lesion in the right temporal occipital reg ion. There has been progression of edema as well as enhancement within the medial aspect of the right occipital lobe, evidence of progression of disease. Aggressive primary brain neoplasm, such as glioblastoma, is favored. CODE T
== END 2019-07-28 10:45 | disposition home or self-care (01) ==
LOC: SCSMRI 10:44
PROVIDERS: ATTEND Neurological Surgery
DX: C71.4 Malignant neoplasm of occipital lobe (principal); G93.6 Cerebral edema; G93.89 Other specified disorders of brain
CPT/HCPCS: 70553

== ENCOUNTER 2019-10-14 10:43 | Outpatient (CLI) | payer BC ==
--- NOTE | 2019-10-14 15:35 | MRI ---
MRI BRAIN WITH AND WITHOUT CONTRAST: HISTORY: Malignant neoplasm of the parietal lobe. COMPARISON: 07/28/2019 FINDINGS: Gradient echo sequence: No hemorrhage. Calvarium: Appropriate T1 marrow signal intensity. Brain parenchyma: With regard to the left cerebrum, no mass, mass effect or midline shift. Brain volu me is age-appropriate. Cortical avalos-white matter differentiation preserved. With regard the right cerebrum there is decrease in T2 and FLAIR hyperintensity intensity. [place] ss, the overall geographic distribution of abnormal FLAIR hyperintensity is unchanged with sulcal effacement of the right occipital lobe. The area of FLAIR hyperintensity measures 2.8 x 4.0 cm. There does appear to be a stable small cystic component, likely representing an area of volume loss. Post contrast images redemonstrate peripheral enhancement. There are two separate enhancing foci. The more lateral enhancing focus measu res 1.6 x 1.1 cm and the more medial focus measures 2.0 x 1.3 cm. There is a third slightly inferior enhancing focus adjacent to the occipital horn of the right lateral ventricle, measuring 1.1 x 1.1 cm. Previously, these regions of interest measure 1.7 x 1.2 cm, 1.7 x 1.2 cm and 1.1 x 1.1 cm. There is no evidence of new abnormal enhancement in the right cerebrum, left cerebrum or cerebell um. Ventricles: No evidence of hydrocephalus. Sinuses and mastoid air cells: Adequate aeration. Diffusion: Central arterial flow is maintained. Absent restricted diffusion. Postcontrast images: Enhancing foci in the right occipital lobe as described above. IMPRESSION: Redemonstration of three separate enhancing foci in the right occipital lobe. Compared to the previou s examination, no appreciable change. Transcribed Date/Time: 10/14/2019 3:45 PM
== END 2019-10-14 10:44 | disposition home or self-care (01) ==
LOC: SCSMRI 10:43
PROVIDERS: ATTEND Neurological Surgery
DX: C71.3 Malignant neoplasm of parietal lobe (principal)
CPT/HCPCS: 70553

== ENCOUNTER 2020-02-03 13:33 | Outpatient (CLI) | payer BC ==
--- NOTE | 2020-02-03 15:57 | MRI ---
MRI OF BRAIN WITH AND WITHOUT CONTRAST: INDICATION: Malignant neoplasm of parietal lobe. COMPARISON: 10/14/2019 MRI of brain. FINDINGS: The previous exam revealed 3 adjacent ring-enhancing lesions seen in the occipitoparietal region on t he right. These lesions appear to cross the sulcus and reside in both parietal and occipital lobes. When coronal and sagittal images are compared, there is increasing enhancement today. The more infer ior lesion, which is ring-enhancing and measures approximately 1.2 cm in the coronal plane, is unchan ged. However, the more lateral 2 lesions which were noted previously are now coalescing and have mor e prominent enhancement and cannot be well in the coronal plane. Total measurement today o f these lesions measures 2.3 cm craniocaudal in the coronal plane. In addition, there is now an area of increasing enhancement seen medial to the 2 coalescing lesions. These findings are best appreciated in the coronal postcontrast sequence. The more medial area of e nhancement now measures up to 1.0 cm craniocaudal dimension in the coronal plane. On FLAIR sequence, there continues to be edema in the occipitoparietal region similar to the prior ex am. There is increasing FLAIR signal seen in the periventricular white matter bilaterally today when compared to prior study. This could potentially be post radiation change and recommend clinical cor relation. No other enhancement identified. IMPRESSION: The ring-enhancing masses described in the right occipitoparietal region on prior studies are again s een. There is increasing enhancement today as described above, best appreciated in the coronal post contrast sequence. POS: JENNIFER
== END 2020-02-03 13:34 | disposition home or self-care (01) ==
LOC: TBSIIMAG 13:33
PROVIDERS: ATTEND Neurological Surgery
DX: C71.3 Malignant neoplasm of parietal lobe (principal)
CPT/HCPCS: 70553